=== PATIENT | female | born 1960 | race African-American/Black ===

== ENCOUNTER 2019-09-02 15:09 | Inpatient (IN) | payer MEDICAID ==
[~2019-09-02] VITALS: Ht 170.2 cm; Wt 81.6 kg
--- NOTE | 2019-09-02 15:09 | NUR ---
"B[facility], SENT BY PMD FOR RAPID [id number]" pt aaox4, -sob, nad noted, pending md siegel
[2019-09-02] MEDS ORDERED: IV NS 0.9% 1,000 ML BAG IV ONE (15:30)
[2019-09-02 15:47] LABS: EOSINOPHILS % (AUTO) 0.1 % (0.0-6.0); HEMATOCRIT 34 % (33-45); HEMOGLOBIN 11.1 g/dL (11.5-14.8)
[2019-09-02 15:51] LABS: BASOPHILS # (AUTO) 0.1 /CMM (0.0-0.2); BASOPHILS % (AUTO) 0.5 % (0.0-2.0); LYMPHOCYTES # (AUTO) 1.9 /CMM (0.8-4.8); LYMPHOCYTES % (AUTO) 10.6 % (20.0-44.0); MEAN CORPUSCULAR HGB CONC 33 g/dl (31.0-36.0); MEAN CORPUSCULAR VOLUME 92 fL (82-100); MONOCYTES # (AUTO) 2.4 /CMM (0.1-1.30); MONOCYTES % (AUTO) 13.4 % (2.0-12.0); NEUTROPHILS # (AUTO) 13.6 /CMM (1.8-8.9); NEUTROPHILS % (AUTO) 75.4 % (43.0-81.0); PLATELET COUNT (AUTO) 256 /CMM (150-450); RED BLOOD CELL COUNT(AUTO) 3.69 MIL/uL (4.0-5.2); WHITE BLOOD COUNT (AUTO) 18.1 K/uL (4.3-11.0)
[2019-09-02 15:55] LABS: CALCIUM, SERUM 8.5 mg/dL (8.5-10.1); CARBON DIOXIDE 26 mmol/L (21-32); CHLORIDE 103 mmol/L (98-107); CREATININE 1.4 mg/dL (0.6-1.3); GLUCOSE 111 mg/dL (74-106); POTASSIUM 4.2 mmol/L (3.5-5.1); SODIUM SERUM 139 mmol/L (136-145); UREA NITROGEN, BLOOD 30 mg/dL (7-18)
[2019-09-02 16:10] LABS: ALANINE AMINOTRANSFERASE 20 U/L (12-78); ALBUMIN 2.4 g/dL (3.4-5.0); ALKALINE PHOSPHATASE 93 U/L (46-116); ASPARTATE AMINOTRANSFERASE 14 U/L (15-37); BILIRUBIN,DIRECT 0.1 mg/dL (0.0-0.2); BILIRUBIN,TOTAL 0.2 mg/dL (0.2-1.0); TOTAL PROTEIN, SERUM 7.3 g/dL (6.4-8.2)
[2019-09-02 16:38] LABS: APPEARANCE,URINE Slightly Cloudy (CLEAR); BILIRUBIN,URINE Negative (NEGATIVE); BLOOD, URINE Negative Ery/uL (NEGATIVE); KETONES,URINE Trace (NEGATIVE); LEUKOCYTE ESTERASE ,URINE Small (NEGATIVE); NITRITE, URINE Negative (NEGATIVE); PROTEIN,URINE Trace mg/dl (NEGATIVE); UGLUCOSE Negative (NEGATIVE); UROBILINOGEN,URINE 0.2 EU/dL (0.2)
[2019-09-02 16:43] LABS: COLOR,URINE DARK YELLOW (YELLOW)
[2019-09-02 16:48] LABS: BACTERIA,URINE Few /HPF (None Seen); RBC,URINE 0-2 /HPF (0-2); SQUAMOUS EPITHELIAL CELL,UR Few /HPF (None Seen)
[2019-09-02] MEDS ORDERED: BENZ2AMP PO (16:50)
[2019-09-02] MEDS ORDERED: HALO2TAB PO (16:50)
[2019-09-02] MEDS ORDERED: CEFTRIAXONE 1GM BAG (ER ONLY) 50 ML IV ONE (17:30)
[2019-09-02] MEDS ORDERED: AZITHROMYCIN 500 MG in IV D5W 250 ML IV ONE (17:30)
[2019-09-02] MEDS ORDERED: Z GUARD REMEDY 2 OZ OINT TP PRN (19:00)
[2019-09-02] MEDS ORDERED: ONDANSETRON HCL/PF 4 MG/2 ML VIAL IVP PRN (19:00)
[2019-09-02] MEDS ORDERED: MAG HYDROX/AL HYDROX/SIMETH 30 ML UDC PO PRN (19:00)
[2019-09-02] MEDS ORDERED: HYDROCODONE/APAP 5/325MG 1 EACH TABLET PO PRN (19:00)
[2019-09-02] MEDS ORDERED: MAGNESIUM HYDROXIDE 30 ML UDC PO PRN (19:00)
[2019-09-02] MEDS ORDERED: ZOLPIDEM TARTRATE 5 MG TABLET PO PRN (19:00)
--- NOTE | 2019-09-02 21:42 | NUR ---
report given to chris mcdowell for sera, pt was transported to 1st floor [facility]
[2019-09-02] MEDS: IV NS 0.9% 1,000 ML IV PRN (22:08)
--- NOTE | 2019-09-02 22:30 | NUR ---
HOSPITAL RECEIVING CLERK NOTES RECEIVED PT FROM ER [facility] [place]. PT A/O X2 AND ABLE TO MAKE NEEDS KNOWN. RESPIRATIONS EVEN AND UNLABORED WITH NO S/S OF ACUTE DISTRESS OR SOB NOTED. NO COMPLAINTS OF PAIN AT THIS TIME. PT NOTED WITH RWRIST @20G PATENT AND INTACT AND SL. PT ON TELE MONITORING WITH SINUS TACH @120S. SAFETY MEASURES IN PLACE WITH BED IN LOWEST LOCKED POSITION WITH SIDE RAILS UP X2. ORIENTED PT TO ROOM AND STAFF. CALL LIGHT WITHIN REACH. WILL CONTINUE TO MONITOR.
[2019-09-02 22:35] VITALS: BP 130/68
--- NOTE | 2019-09-02 22:45 | NUR ---
LEAN SPECIALIST NOTES PT NOTED WITH ELEVATED TEMP, COOLING MEASURES INITIATED, WILL CONTINUE TO MONITOR.
--- NOTE | 2019-09-02 22:45 | NUR ---
MANAGER MINING NOTES PT NOTED AGITATED. PT REFUSES TO ANSWER QUESTIONS BUT STATES SHE WANTS TO GO HOME. PT STATES THAT THERE IS NOTHING WRONG WITH HER. EXPLAINED THE SITUATION WITH HER AND PT STATED THAT SHE CAN JUST TAKE THE MEDICATION AT HOME HERSELF. PT ALSO CURSING.
[2019-09-02 23:40] VITALS: BP 108/51
[2019-09-02] MEDS: ACETAMINOPHEN 325 MG TABLET PO PRN (23:42)
--- NOTE | 2019-09-02 23:52 | NUR ---
WOOL MERCHANT NOTES PT NOTED WITH ELEVATED TEMP, TYLENOL GIVEN. PT REFUSED COOLING MEASURES AT THIS TIME. WILL CONTINUE TO MONITOR.
[2019-09-03 03:55] VITALS: BP 93/47
[2019-09-03 06:27] LABS: BASOPHILS # (AUTO) 0.1 /CMM (0.0-0.2); BASOPHILS % (AUTO) 0.5 % (0.0-2.0); EOSINOPHILS % (AUTO) 0.5 % (0.0-6.0); HEMATOCRIT 33 % (33-45); HEMOGLOBIN 10.7 g/dL (11.5-14.8); LYMPHOCYTES # (AUTO) 1.9 /CMM (0.8-4.8); LYMPHOCYTES % (AUTO) 12.2 % (20.0-44.0); MEAN CORPUSCULAR HGB CONC 33 g/dl (31.0-36.0); MEAN CORPUSCULAR VOLUME 90 fL (82-100); MONOCYTES % (AUTO) 12.7 % (2.0-12.0); NEUTROPHILS # (AUTO) 11.8 /CMM (1.8-8.9); NEUTROPHILS % (AUTO) 74.1 % (43.0-81.0); PLATELET COUNT (AUTO) 240 /CMM (150-450); WHITE BLOOD COUNT (AUTO) 15.9 K/uL (4.3-11.0)
--- NOTE | 2019-09-03 07:00 | NUR ---
CIVIL DIVISION DEPUTY SHERIFF NOTES PT IN BED AWAKE AND ABLE TO MAKE NEEDS KNOWN. PT A/O X2 AND ABLE TO MAKE NEEDS KNOWN. RESPIRATIONS EVEN AND UNLABORED WITH NO S/S OF ACUTE DISTRESS OR SOB NOTED THROUGHOUT SHIFT. NO COMPLAINTS OF PAIN AT THIS TIME. PT NOTED WITH RWRIST @20G PATENT AND INTACT INFUSING NS @75CC/HR. PT ON TELE MONITORING WITH SINUS TACH @115S. SAFETY MEASURES IN PLACE WITH BED IN LOWEST LOCKED POSITION WITH SIDE RAILS UP X2. WILL ENDORSE TO ONCOMING NURSE FOR MARILYNN.
--- NOTE | 2019-09-03 07:10 | NUR ---
RN OPENING NOTES RECEIVED REPORT FROM WHOLESALE ACCOUNT MANAGER RN. PT IS AWAKE AND STATING SHE WANTS TO GO HOME. PT STATES SHE IS NOT HAVING ANY PAIN AND WOULD LIKE FOR US TO GET OUT OF THE ROOM. PT APPEARS TO BE UNCOOPERATIVE AT THIS TIME. PT HAS A RIGHT WRIST 20 GAUGE SL. PT IS A&OX2. PT IS ST ON HR MONITOR HR 104. BED IS LOCKED AND IN LOWEST POSITIION WITH CALL LIGHT IN REACH. WILL CONTINUE TO MONITOR.
[2019-09-03 07:14] LABS: ALBUMIN 2.1 g/dL (3.4-5.0); BILIRUBIN,TOTAL 0.4 mg/dL (0.2-1.0); CALCIUM, SERUM 7.7 mg/dL (8.5-10.1); CREATININE 1.1 mg/dL (0.6-1.3); POTASSIUM 3.9 mmol/L (3.5-5.1); TOTAL PROTEIN, SERUM 6.6 g/dL (6.4-8.2)
[2019-09-03 07:29] LABS: THYROID STIMULATING HORMONE 1.301 uIU/mL (0.358-3.74)
[2019-09-03 07:52] LABS: BAND % (MANUAL) 1 % (0.0-5.0); LYMPHOCYTES % (MANUAL) 19 % (16-48); MONOCYTES % (MANUAL) 14 % (0-11.0); NEUTROPHILS % (MANUAL) 66 (42-76)
[2019-09-03] MEDS: PANTOPRAZOLE 40 MG TABLET.DR PO SCH (07:55)
[2019-09-03] MEDS: ACETAMINOPHEN 325 MG TABLET PO PRN ×2 (07:55→15:06)
[2019-09-03 08:00] VITALS: BP 96/48
[2019-09-03 09:06] LABS: MAGNESIUM 1.9 mg/dL (1.8-2.4)
[2019-09-03] MEDS: LACTOBACILLUS RHAMNOSUS GG 1 EACH CAP.SPRINK PO SCH ×2 (09:11→16:23)
--- NOTE | 2019-09-03 11:13 | NUR ---
PT NOT ALLOWING FOR NEW IV INSERTION. IV IN RIGHT WRIST DISLODGED PT REFUSING STAFF TO REMOVE IV. PT IS NONCOMPLIANT AT PRESENT MOMENT WILL ATTEMPT TO REMOVE AT A LATER TIME WHEN PT IS MORE AGREEABLE.
[2019-09-03] MEDS: LEVOFLOXACIN (750 MG) 750 MG TABLET PO SCH (13:18)
--- NOTE | 2019-09-03 15:05 | NUR ---
HAMILTON was informed by shelter case manager Zenia that pt. came from [facility]. HAMILTON contacted Kurtis at [facility] to inquire if pt. is from [facility]. Per Kurtis, pt. is from there and they will have a bed for the pt. once the pt. is medically cleared. HAMILTON updated Zenia with aforementioned information.
[2019-09-03 16:00] VITALS: BP 88/49
--- NOTE | 2019-09-03 16:09 | NUR ---
PT AGREEABLE TO REMOVAL OF IV. PT INSISTS THAT SHE WILL NOT ALLOW ANOTHER IV FOR INSERTION. Addendum: 09/03/19 at 1610 by MARGARITO DEJESUS RN PT RUNNING FEVER. REFUSES COOLING MEASURES.
--- NOTE | 2019-09-03 16:18 | NUR ---
PT REFUSING NASAL CANNULA.
[2019-09-03] MEDS: DIVALPROEX SODIUM 125 MG CAP.SPRINK PO SCH (16:24)
[2019-09-03] MEDS: BENZTROPINE MESYLATE (1 MG) 1 MG TABLET PO SCH (16:24)
[2019-09-03] MEDS: HALOPERIDOL 1 MG TABLET PO SCH (16:42)
[2019-09-03] MEDS ORDERED: CEFTRIAXONE 1 G in IV D5W 50 ML IV SCH (17:00)
[2019-09-03] MEDS ORDERED: AZITHROMYCIN 500 MG in IV D5W 250 ML IV SCH (18:00)
--- NOTE | 2019-09-03 18:29 | NUR ---
PT REFUSING TO EAT DINNER STATES SHE DOES NOT LIKE HER DINNER. PT REQUESTING JOSE R HAYS.
--- NOTE | 2019-09-03 19:17 | NUR ---
REPORT GIVEN TO AUTOMOTIVE SERVICE PROFESSIONAL RN FOR MARILYNN.
--- NOTE | 2019-09-03 19:30 | NUR ---
RN MS OPENING NOTES RECEIVED PATIENT IN BED AWAKE, ALERT AND ORIENTED 2, VERBALLY RESPONSIVE. ABLE TO MAKE NEEDS KNOWN. PATIENT DISHEVELED AND UNKEMPT. REFUSES ANY HELP. REFUSES HOSPITAL GOWN. BREATHING EVEN AND UNLABORED. NO SOB NOTED. ON ROOM AIR. NO COMPLAINTS OF PAIN OR DISCOMFORT. NO IV ACCESS DUE TO REFUSAL. STEADY GAIT TO THE BATHROOM. ALL OTHER NEEDS ATTENDED TO. SAFETY MEASURES IN PLACE. CALL LIGHT WITHIN REACH. WILL CONTINUE TO MONITOR.
[2019-09-03 20:00] VITALS: BP 108/51
[2019-09-04 04:00] VITALS: BP 111/54
--- NOTE | 2019-09-04 04:22 | NUR ---
RN MS NOTES PATIENT REFUSED TO PUT GOWN ON. ALSO REFUSED FOR BED SHEETS TO BE CHANGED.
--- NOTE | 2019-09-04 05:28 | NUR ---
RN MS NOTES PATIENT REFUSED BLOOD DRAW AND WANTS IT "LATER ON." PHLEB WILL COME BACK.
--- NOTE | 2019-09-04 06:25 | NUR ---
RN MS CLOSING NOTES PATIENT RESTING IN BED. IN NO DISTRESS. NO ACUTE CHANGES THROUGHOUT SHIFT. BREATHING EVEN AND UNLABORED. NO SOB NOTED. ON ROOM AIR. NO COMPLAINTS OF PAIN OR DISCOMFORT. NO IV ACCESS DUE TO REFUSAL. STEADY GAIT TO THE BATHROOM. ALL OTHER NEEDS ATTENDED TO. SAFETY MEASURES IN PLACE. CALL LIGHT WITHIN REACH. WILL ENDORSE TO ONCOMING NURSE FOR MARILYNN.
[2019-09-04 08:00] VITALS: BP 93/51
[2019-09-04] MEDS: DIVALPROEX SODIUM 125 MG CAP.SPRINK PO SCH ×3 (08:09→16:09)
[2019-09-04] MEDS: BENZTROPINE MESYLATE (1 MG) 1 MG TABLET PO SCH ×3 (08:09→16:09)
[2019-09-04] MEDS: HALOPERIDOL 1 MG TABLET PO SCH ×3 (08:09→16:09)
[2019-09-04] MEDS: PANTOPRAZOLE 40 MG TABLET.DR PO SCH (08:09)
[2019-09-04] MEDS: LACTOBACILLUS RHAMNOSUS GG 1 EACH CAP.SPRINK PO SCH ×2 (08:09→16:09)
[2019-09-04 09:00] VITALS: BP 93/51
[2019-09-04 09:12] LABS: HIV SCRN 4G wRFX Non Reactive (Non Reactive)
[2019-09-04] MEDS: LEVOFLOXACIN (750 MG) 750 MG TABLET PO SCH (12:37)
[2019-09-04 13:40] LABS: BASOPHILS % (AUTO) 0.4 % (0.0-2.0); EOSINOPHILS % (AUTO) 0.3 % (0.0-6.0); HEMATOCRIT 33 % (33-45); HEMOGLOBIN 10.8 g/dL (11.5-14.8); LYMPHOCYTES # (AUTO) 1.7 /CMM (0.8-4.8); LYMPHOCYTES % (AUTO) 14.3 % (20.0-44.0); MEAN CORPUSCULAR HGB CONC 33 g/dl (31.0-36.0); MEAN CORPUSCULAR VOLUME 89 fL (82-100); MONOCYTES # (AUTO) 1.9 /CMM (0.1-1.30); MONOCYTES % (AUTO) 15.9 % (2.0-12.0); NEUTROPHILS # (AUTO) 8.1 /CMM (1.8-8.9); NEUTROPHILS % (AUTO) 69.1 % (43.0-81.0); PLATELET COUNT (AUTO) 278 /CMM (150-450); RED BLOOD CELL COUNT(AUTO) 3.64 MIL/uL (4.0-5.2); WHITE BLOOD COUNT (AUTO) 11.7 K/uL (4.3-11.0)
[2019-09-04 13:46] LABS: CALCIUM, SERUM 8.3 mg/dL (8.5-10.1); CREATININE 1.1 mg/dL (0.6-1.3); POTASSIUM 4.2 mmol/L (3.5-5.1)
[2019-09-04 16:00] VITALS: BP 93/51
[2019-09-04 17:48] VITALS: BP 92/50
--- NOTE | 2019-09-04 19:00 | NUR ---
MS RN OPENING NOTES Received patient A/O x2, awake on L sidelying position on bed. On RA, watching TV, no respiratory distress, denies discomfort at this time. Discuss to patient the POC for the night, patient verbalized understanding. Reemphasized the importance to stop smoking, patient verbalized understanding. Kept on bed clean, dry and comfortable. On fall and aspiration precautions. Call lights within easy reach. Will continue to monitor accordingly.
[2019-09-04 20:00] VITALS: BP 98/48
[2019-09-05 04:00] VITALS: BP 142/57
--- NOTE | 2019-09-05 06:09 | NUR ---
MS RN CLOSING NOTES Patient asleep, easily awaken. On RA, no respiratory distress, no s/sx of discomfort noted at this time. All nursing needs attended, no new complaints made. Afebrile throughout the shift, HR WNL. Kept on bed clean, dry and comfortable. On fall and aspiration precautions. Call light within easy reach. Endorsed to the next shift.
[2019-09-05 08:00] VITALS: BP 109/46
[2019-09-05 08:06] LABS: HIV SCRN 4G wRFX Non Reactive (Non Reactive)
[2019-09-05] MEDS: PANTOPRAZOLE 40 MG TABLET.DR PO SCH (08:27)
[2019-09-05] MEDS: BENZTROPINE MESYLATE (1 MG) 1 MG TABLET PO SCH ×3 (08:27→16:50)
[2019-09-05] MEDS: LACTOBACILLUS RHAMNOSUS GG 1 EACH CAP.SPRINK PO SCH ×2 (08:27→16:50)
[2019-09-05] MEDS: DIVALPROEX SODIUM 125 MG CAP.SPRINK PO SCH ×3 (08:27→16:50)
[2019-09-05] MEDS: HALOPERIDOL 1 MG TABLET PO SCH ×3 (08:28→16:50)
[2019-09-05] MEDS: IV NS 0.9% 1,000 ML IV PRN (11:12)
[2019-09-05] MEDS ORDERED: LEVO750T21 PO (11:36)
[2019-09-05] MEDS: LEVOFLOXACIN (750 MG) 750 MG TABLET PO SCH (12:23)
--- NOTE | 2019-09-05 18:15 | NUR ---
RN NOTE: (DISCHARGE NOTE) PATIENT REMAINS ALERT AWAKE ORIENTED X 2 WITH PERIODS OF FORGETFULNESS, CONFUSION. ON ROOM AIR, NO BREATHING DISTRESS NOTED. DENIES CHEST PAIN & DISCOMFORT. NO FALL/INJURY NOTED. PATIENT REFUSING IV LINE & FLUIDS, MD AWARE. NO SIGNIFICANT CHANGES NOTED DURING SHIFT. AT 1811: PATIENT DISCHARGE TO [facility]. PATIENT AGREE WITH PLAN. SKIN INTACT, NO REDNESS NOTED. PATIENT AMBULATORY. DISCHARGE PACKAGE GIVEN TO AMBULANCE EMT. LEFT VIA AMBULANCE WITH ALL BELONGINGS. PHAN BECKFORD MADE AWARE THAT DAUGHTER LUDIN NUMBERS ARE NOT WORKING & [phone].
== END 2019-09-05 18:10 | DRG 720 ==
LOC: ER 15:19 → TELE1 20:05 → MEDSG1 09-03 10:35
PROVIDERS: ADMIT Hospitalist; ATTEND Nurse Practitioner Acute Care
DX: A41.9 Sepsis, unspecified organism (principal); N17.0 Acute kidney failure with tubular necrosis; G93.41 Metabolic encephalopathy; E44.0 Moderate protein-calorie malnutrition; E87.2 Acidosis; J15.9 Unspecified bacterial pneumonia; N39.0 Urinary tract infection, site not specified; E88.09 Other disorders of plasma-protein metabolism, not elsewhere classified; F17.210 Nicotine dependence, cigarettes, uncomplicated; E66.3 Overweight; F25.9 Schizoaffective disorder, unspecified; F31.9 Bipolar disorder, unspecified; F29 Unspecified psychosis not due to a substance or known physiological condition; Z68.28 Body mass index [BMI] 28.0-28.9, adult
CPT/HCPCS: 36415; 71045-TC; 80048-TC; 80053-TC; 80061-TC; 80076-TC; 81000-TC; 83605-TC; 83735-TC; 84100-TC; 84443-TC; 84484-TC; 85025-TC; 85730-TC; 87040-TC; 87070-TC; 87081-TC; 87086-TC; 94640-TC; G0378; J0456; J0696; J7030; J7060

== ENCOUNTER 2022-07-27 12:44 | Inpatient (IN) | payer MEDICAID, OTHER ==
[~2022-07-27] VITALS: Ht 170.2 cm; Wt 90.3 kg
[~2022-07-27 12:44] MED LIST: BENZ2AMP PO; HALO2TAB PO; LEVO750T21 PO
[2022-07-27] MEDS ORDERED: HALOPERIDOL LACTATE INJ 5 MG/ML VIAL ONE (13:14)
[2022-07-27] MEDS ORDERED: HALOPERIDOL LACTATE INJ 5 MG/ML VIAL IM ONE (13:30)
[2022-07-27 14:25] LABS: BASOPHILS % (AUTO) 0.3 % (0.0-2.0); EOSINOPHILS % (AUTO) 1.8 % (0.0-6.0); HEMATOCRIT 30 % (33-45); HEMOGLOBIN 9.6 g/dL (11.5-14.8); LYMPHOCYTES # (AUTO) 1.5 K/uL (0.8-4.8); LYMPHOCYTES % (AUTO) 61.4 % (20.0-44.0); MEAN CORPUSCULAR HGB CONC 32 g/dl (31.0-36.0); MEAN CORPUSCULAR VOLUME 97 fL (82-100); MONOCYTES # (AUTO) 0.4 K/uL (0.1-1.30); MONOCYTES % (AUTO) 14.8 % (2.0-12.0); NEUTROPHILS # (AUTO) 0.5 K/uL (1.8-8.9); NEUTROPHILS % (AUTO) 21.7 % (43.0-81.0); PLATELET COUNT (AUTO) 146 K/uL (150-450); RED BLOOD CELL COUNT(AUTO) 3.06 MIL/uL (4.0-5.2); WHITE BLOOD COUNT (AUTO) 2.5 K/uL (4.3-11.0)
[2022-07-27 14:34] LABS: CALCIUM, SERUM 8.4 mg/dL (8.5-10.1); CREATININE 2.6 mg/dL (0.6-1.3); POTASSIUM 4.4 mmol/L (3.5-5.1)
[2022-07-27 14:41] LABS: ALBUMIN 1.6 g/dL (3.4-5.0); BILIRUBIN,DIRECT 0.7 mg/dL (0.0-0.2); BILIRUBIN,TOTAL 0.9 mg/dL (0.2-1.0); TOTAL PROTEIN, SERUM 6.1 g/dL (6.4-8.2)
[2022-07-27] MEDS ORDERED: AMLO-212 PO (14:58)
[2022-07-27] MEDS ORDERED: QUET25TA PO (14:58)
[2022-07-27] MEDS ORDERED: DIVA125C2 PO (14:58)
[2022-07-27] MEDS ORDERED: APIX5TAB PO (14:58)
[2022-07-27] MEDS ORDERED: PANT40TA49 PO (14:58)
[2022-07-27] MEDS ORDERED: METO-358 PO (14:58)
--- NOTE | 2022-07-27 15:26 | NUR ---
COVID 19 ANTIGEN SPECIMEN COLLECTED AND SENT TO LAB
[2022-07-27] MEDS ORDERED: IV NS 0.9% 1,000 ML BAG IV ONE (15:30)
[2022-07-27 15:46] LABS: EOSINOPHILS % (MANUAL) 2 % (0-4); LYMPHOCYTES % (MANUAL) 68 % (16-48); MONOCYTES % (MANUAL) 14 % (0-11.0); NEUTROPHILS % (MANUAL) 16 (42-76)
[2022-07-27 15:51] LABS: BILIRUBIN,URINE SMALL (NEGATIVE); COLOR,URINE YELLOW (YELLOW); LEUKOCYTE ESTERASE ,URINE SMALL (NEGATIVE); NITRITE, URINE POSITIVE (NEGATIVE); PROTEIN,URINE 30 mg/dl (NEGATIVE); UGLUCOSE NEGATIVE (NEGATIVE); UROBILINOGEN,URINE >=8.0 EU/dL (0.2)
[2022-07-27 16:03] LABS: BACTERIA,URINE 4+ /HPF (None Seen); SQUAMOUS EPITHELIAL CELL,UR Few /HPF (None Seen); WBC,URINE TOO NUMEROUS TO COUN /HPF (0-3)
--- NOTE | 2022-07-27 19:30 | NUR ---
RECEIVED THIS 62/F CAME EARLIER WITH CC OF FAILURE TO THRIVE. PATIENT IS AAOX4. SHOUTING THAT SHE WAS NOT BEING FED THE WHOLE TIME THAT SHE STAYED IN ER. PATIENT HAS PERIPHERAL LINE ON LEFT WRIST USING G20 . ATTACHED TO MONITOR. VITALS CHECKED.
--- NOTE | 2022-07-27 19:35 | NUR ---
DR OZUNA AGREED TO GIVE PATIENT SOME SNACKS.
--- NOTE | 2022-07-27 19:50 | NUR ---
FAXED CLINICALS TO [facility] AT [phone]
--- NOTE | 2022-07-27 20:03 | NUR ---
REPORT GIVEN TO WICHO INTERIANO
--- NOTE | 2022-07-27 20:16 | NUR ---
CALLED ADMITTING. PATIENT DOESNT HAVE AUTHORIZATION YET TO BE ADMITTED.
--- NOTE | 2022-07-27 20:40 | NUR ---
AUTH NUMBER TO ADMIT PT HERE PER RACHEL MURO: [id number]
[2022-07-27] MEDS ORDERED: Z GUARD REMEDY 4 OZ OINT TP PRN (21:30)
[2022-07-27] MEDS ORDERED: ACETAMINOPHEN 325 MG TABLET PO PRN (21:30)
[2022-07-27] MEDS ORDERED: MORPHINE SULFATE INJ 2 MG/ML DISP.SYRIN IV PRN (21:30)
[2022-07-27] MEDS ORDERED: ZOLPIDEM TARTRATE 5 MG TABLET PO PRN (21:30)
[2022-07-27] MEDS ORDERED: MAGNESIUM HYDROXIDE 30 ML UDC PO PRN (21:30)
[2022-07-27] MEDS ORDERED: MAG HYDROX/AL HYDROX/SIMETH 30 ML UDC PO PRN (21:30)
[2022-07-27] MEDS ORDERED: ONDANSETRON HCL/PF 4 MG/2 ML VIAL IVP PRN (21:30)
--- NOTE | 2022-07-27 21:37 | NUR ---
Combative patient, refused the exam. Per RN Natally, the patient may accept better in the morning
--- NOTE | 2022-07-27 21:41 | NUR ---
MS TANKER SERVICEMAN NOTE RECEIVED PATIENT FROM ER, PATIENT ALERT/ORIENTED X 2-3, PT AGITATED AND YELLING. PATIENT REFUSING ALL CARE AND CUSSING AT ALL STAFF, REFUSED TO HAVE US OF ABDOMEN, REFUSED VITALS, REFUSED SKIN CHECK, REFUSED HYGIENE CARE, REFUSED TO ANSWER ANY QUESTIONS. PATIENT STATES SHE WANTS TO BE LEFT ALONE. IV ACCESS ON LEFT WRIST #20G INTACT, UNABLE TO FLUSH BECAUSE PATIENT REFUSED. SAFETY MEASURES IN PLACE: CALL LIGHT WITHIN REACH, SIDE RAILS UP X 3, BED LOCKED IN LOWEST POSITION, BED ALARM ON. WILL CONTINUE TO MONITOR PATIENT Addendum: 07/27/22 at 7684 by LAISHA CHOW RN ALERT/ORIENTED X 1-2
[2022-07-27] MEDS: IV NS 0.9% 1,000 ML IV PRN (22:10)
[2022-07-27] MEDS ORDERED: CEFTRIAXONE 1 G VIAL ONE (22:26)
[2022-07-27] MEDS: CEFTRIAXONE 1 G in IV D5W 50 ML IV SCH (22:27)
--- NOTE | 2022-07-27 22:32 | NUR ---
MS RN NOTE PATIENT REFUSED NURSE SWALLOW EVAL, STATED "WHY DO YOU KEEP BOTHERING ME?! DON'T YOU GET IT TO LEAVE ME ALONE!"
--- NOTE | 2022-07-28 06:41 | NUR ---
MS RN CLOSING NOTE PATIENT SLEEPING IN BED, ALERT/ORIENTED X 1-2, PATIENT LESS AGITATED BUT STILL YELLS AT STAFF TO LEAVE HER ALONE. PATIENT STABLE ON RA, NO S/S OF DISTRESS OR SOB NOTED, BREATHING EVEN AND UNLABORED. PATIENT REFUSED MOST CARE THIS SHIFT, YELLED AND CUSSED AT STAFF WHENEVER ROOM WAS ENTERED AND REFUSED TO ANSWER ALL ADMISSION QUESTIONS. PATIENT REFUSED US OF ABDOMEN, LAB DRAW AND NURSING SWALLOW EVAL, PATIENT TO BE NPO UNTIL SWALLOW EVAL COMPLETED PER MD. PATIENT ALLOWED US TO PROVIDE HYGIENE CARE THIS AM, NO WOUNDS NOTED ON BODY. IV ACCESS ON LEFT WRIST #20G INTACT AND INFUSING NS @ 90 ML/HR. SAFETY MEASURES IN PLACE: CALL LIGHT WITHIN REACH, SIDE RAILS UP X 2, BED LOCKED IN LOWEST POSITION, BED ALARM ON. WILL ENDORSE TO DAY SHIFT NURSE FOR CONTINUITY OF CARE
--- NOTE | 2022-07-28 07:20 | NUR ---
MS RN OPENING NOTE RECEIVED PATIENT SLEEPING IN BED, ALERT/ORIENTED X 1/2, PATIENT STABLE ON ROOM AIR, WITH NO S/S OF DISTRESS OR SOB, BREATHING EVEN AND UNLABORED. NO WOUNDS NOTED ON BODY. IV ACCESS ON LEFT WRIST 20G INTACT AND INFUSING NS @ 90 ML/HR. PATIENT TO BE NPO UNTIL SWALLOW EVAL COMPLETED PER MD. SAFETY MEASURES IN PLACE: CALL LIGHT WITHIN REACH, SIDE RAILS UP X2, BED LOCKED IN LOWEST POSITION, BED ALARM ON. WILL CONTINUE TO MONITOR
[2022-07-28] MEDS ORDERED: PANTOPRAZOLE 40 MG TABLET.DR PO SCH (07:30)
--- NOTE | 2022-07-28 08:01 | NUR ---
PT REFUSED ABD US AND VITAL SIGNS FOR 8AM, WILL TRY AGAIN LATER
[2022-07-28] MEDS: DIVALPROEX SODIUM 125 MG CAP.SPRINK PO SCH ×2 (09:00→21:45)
[2022-07-28] MEDS: PANTOPRAZOLE 40 MG VIAL IV SCH ×2 (09:00→11:23)
[2022-07-28] MEDS: AMLODIPINE BESYLATE 5 MG TABLET PO SCH (09:00)
[2022-07-28] MEDS: QUETIAPINE FUMARATE 25 MG TABLET PO SCH ×2 (09:00→17:38)
[2022-07-28] MEDS ORDERED: APIXABAN 5 MG TABLET PO SCH (09:00)
[2022-07-28] MEDS: METOPROLOL SUCCINATE 50 MG TAB.SR.24H PO SCH (09:00)
[2022-07-28] MEDS: APIXABAN 5 MG TABLET PO SCH ×2 (10:00→17:37)
[2022-07-28] MEDS: IV NS 0.9% 1,000 ML IV PRN (11:23)
--- NOTE | 2022-07-28 11:50 | NUR ---
PT REFUSED SWALLOW EVAL FROM THIS MORNING, DID NURSING EVAL WITH APPLE SAUCE AND ORANGE JUICE, PT TOLERATED WELL, NO CHOKING, NO ASPIRATION. NOTIFIED DR. RAJESH THACKER REGARDING THIS, CHANGED DIET FROM NPO TO PUREED.
[2022-07-28 12:00] VITALS: BP 112/61
[2022-07-28] MEDS ORDERED: OLANZAPINE 10 MG VIAL IM ONE (14:00)
[2022-07-28] MEDS: IV D5/ 0.9% NACL 1,000 ML IV PRN (14:51)
[2022-07-28 16:22] LABS: BILIRUBIN,TOTAL 0.6 mg/dL (0.2-1.0); CREATININE 2.1 mg/dL (0.6-1.3); PHOSPHORUS 3.3 mg/dL (2.5-4.9); TOTAL PROTEIN, SERUM 5.4 g/dL (6.4-8.2)
[2022-07-28 16:26] LABS: ALBUMIN 1.2 g/dL (3.4-5.0)
[2022-07-28 17:04] LABS: THYROID STIMULATING HORMONE 4.998 uIU/mL (0.358-3.74)
[2022-07-28 17:10] LABS: C-REACTIVE PROTEIN 4.3 mg/dL (0.0-0.9)
--- NOTE | 2022-07-28 17:10 | NUR ---
LAB CALLED REGARDING CRITICAL LAB FOR ALBUMIN OF 1.2. NOTIFIED DR THACKER, MADE AWARE AND STATED HE WILL PUT IN AN ORDER.
[2022-07-28 17:21] LABS: BASOPHILS % (AUTO) 0.6 % (0.0-2.0); EOSINOPHILS % (AUTO) 2.8 % (0.0-6.0); HEMATOCRIT 27 % (33-45); HEMOGLOBIN 8.7 g/dL (11.5-14.8); LYMPHOCYTES # (AUTO) 1.5 K/uL (0.8-4.8); MEAN CORPUSCULAR HGB CONC 32 g/dl (31.0-36.0); MEAN CORPUSCULAR VOLUME 100 fL (82-100); MONOCYTES # (AUTO) 0.4 K/uL (0.1-1.30); NEUTROPHILS # (AUTO) 0.7 K/uL (1.8-8.9); NEUTROPHILS % (AUTO) 26.6 % (43.0-81.0); PLATELET COUNT (AUTO) 149 K/uL (150-450); RED BLOOD CELL COUNT(AUTO) 2.73 MIL/uL (4.0-5.2); WHITE BLOOD COUNT (AUTO) 2.8 K/uL (4.3-11.0)
[2022-07-28 17:22] LABS: BAND % (MANUAL) 4 % (0.0-5.0); EOSINOPHILS % (MANUAL) 3 % (0-4); LYMPHOCYTES % (MANUAL) 47 % (16-48); MONOCYTES % (MANUAL) 10 % (0-11.0); NEUTROPHILS % (MANUAL) 36 (42-76)
[2022-07-28 17:23] LABS: BILIRUBIN,DIRECT 0.1 mg/dL (0.0-0.2); BILIRUBIN,TOTAL 0.6 mg/dL (0.2-1.0)
[2022-07-28 17:24] LABS: ALBUMIN 1.2 g/dL (3.4-5.0)
[2022-07-28 17:25] LABS: TOTAL PROTEIN, SERUM 5.4 g/dL (6.4-8.2)
--- NOTE | 2022-07-28 18:47 | NUR ---
MS RN CLOSING NOTE PATIENT AWAKE IN BED, ALERT/ORIENTED X 1-2, PATIENT LESS AGITATED BUT STILL YELLS AT STAFF TO LEAVE HER ALONE. PATIENT STABLE ON RA, NO S/S OF DISTRESS OR SOB NOTED, BREATHING EVEN AND UNLABORED. PATIENT REFUSED BLOOD DRAW AND SWALLOW EVAL BY ST BUT DID NURSING SWALLOW EVAL AND TOLERATED APPLE SAUCE AND ORANGE JUICE WELL. ABLE TO SWALLOW TABLETS WITHNO SIGNS OF CHOKING. PATIENT REFUSED US OF ABDOMEN. NO WOUNDS NOTED ON BODY. IV ACCESS ON LEFT WRIST 20G INTACT AND INFUSING D5 NS @ 100ML/HR. SAFETY MEASURES IN PLACE: CALL LIGHT WITHIN REACH, SIDE RAILS UP X 2, BED LOCKED IN LOWEST POSITION, BED ALARM ON. WILL ENDORSE TO BERRY PLANTER NURSE FOR CONTINUITY OF CARE
--- NOTE | 2022-07-28 19:30 | NUR ---
MS RN OPENING NOTES RECEIVED PATIENT LYING IN BED WITH EYES CLOSED. EASY TO AROUSE. A/O X1-2, STARTED YELLING FOR ME TO GET OUT WHEN I ENTERED THE ROOM. BREATHING EVEN AND NON-LABORED ON ROOM AIR. NOT IN APPARENT DISTRESS. NO C/O PAIN OR DISCOMFORT AT THIS TIME. HAS LEFT WRIST IV ACCESS #20G WITH D5 NS RUNNING AT 100 ML/HR. NO S/S OF INFILTRATION NOTED. SAFETY MEASURES IN PLACE: BED LOCKED AND IN LOWEST POSITION, SIDE RAILS UP X2, CALL LIGHT WITHIN REACH. WILL CONTINUE POC.
[2022-07-28] MEDS: CEFTRIAXONE 1 G in IV D5W 50 ML IV SCH (21:45)
[2022-07-29] MEDS: IV D5/ 0.9% NACL 1,000 ML IV PRN (03:52)
--- NOTE | 2022-07-29 04:30 | NUR ---
MS RN NOTES IV ACCIDENTALLY PULLED OUT. OFFERED TO RE-INSERT BUT PATIENT REFUSED. EXPLAINED IMPORTANCE, STILL REFUSED. CN AWARE.
--- NOTE | 2022-07-29 05:08 | NUR ---
MS RN NOTES RE-ORDERED THE LABS THAT PATIENT REFUSED YESTERDAY.
--- NOTE | 2022-07-29 06:48 | NUR ---
CRATE BUILDER INFORMED ME THAT PATIENT REFUSED BLOOD DRAW. THEY WILL COME BACK LATER.
--- NOTE | 2022-07-29 06:52 | NUR ---
MS RN CLOSING NOTES PATIENT LYING IN BED ASLEEP, RESPONSIVE TO VERBAL AND TACTILE STIMULI. A/O X2, AGITATED AND UNCOOPERATIVE. NO SOB OR NOTED, TOLERATING ROOM AIR WELL. NO ACUTE DISTRESS NOTED. NO S/S OF PAIN OR DISCOMFORT. AFEBRILE. REFUSED IV RE-INSERTION. ALL DUE MEDS GIVEN AND NEEDS ATTENDED. REFUSED SKIN AND PERINEAL CARE, OFFERED AND EXPLAINED IMPORTANCE X3. SAFETY MEASURES MAINTAINED. WILL ENDORSE TO NEXT SHIFT FOR MARILYNN.
--- NOTE | 2022-07-29 07:21 | NUR ---
MS RN OPENING NOTES RECEIVED PATIENT LYING IN BED WITH EYES CLOSED. EASY TO AROUSE. A/O X1-2, BREATHING EVEN AND NON-LABORED ON ROOM AIR. NOT IN APPARENT DISTRESS. NO C/O PAIN OR DISCOMFORT AT THIS TIME. PT DOES NOT HAVE IV ACCESS, ASKED PT IF I CAN REINSERT, PT REFUSED AT THIS TIME. NO S/S OF INFILTRATION NOTED. SAFETY MEASURES IN PLACE: BED LOCKED AND IN LOWEST POSITION, SIDE RAILS UP X2, CALL LIGHT WITHIN REACH. WILL CONTINUE POC.
[2022-07-29 08:00] VITALS: BP 137/82
[2022-07-29] MEDS: PANTOPRAZOLE 40 MG VIAL IV SCH (09:00)
[2022-07-29] MEDS: DIVALPROEX SODIUM 125 MG CAP.SPRINK PO SCH ×2 (09:05→20:25)
[2022-07-29] MEDS: AMLODIPINE BESYLATE 5 MG TABLET PO SCH (09:06)
[2022-07-29] MEDS: APIXABAN 5 MG TABLET PO SCH ×2 (09:06→17:20)
[2022-07-29] MEDS: QUETIAPINE FUMARATE 25 MG TABLET PO SCH ×2 (09:07→17:20)
[2022-07-29] MEDS: METOPROLOL SUCCINATE 50 MG TAB.SR.24H PO SCH (09:07)
--- NOTE | 2022-07-29 09:13 | NUR ---
RN NOTE PT TOOK MEDICATIONS WITH APPLESAUCE, CRUSHED. PT STILL REFUSES IV INSERTION. WILL TRY AGAIN LATER
--- NOTE | 2022-07-29 09:15 | NUR ---
RN NOTE CANNOT ADMINISTER PROTONIX IV DUE TO PT REFUSING IV INSERTION.
--- NOTE | 2022-07-29 10:30 | NUR ---
PT COMPLAINED OF HEADACHE, GAVE TYLENOL PRN FOR PAIN. PT STILL REFUSES BLOOD DRAW.
--- NOTE | 2022-07-29 11:11 | NUR ---
RN NOTES INFORMED DR THACKER THAT PT IS REFUSING BLOOD DRAW AND IV INSERTION. DR THACKER WITH ORDER TO F/U WITH PSYCH MD AND WAS DONE. DR GUTIERREZ WILL COME TOMORROW TO DO PSYCH CONSULT.
--- NOTE | 2022-07-29 13:09 | NUR ---
RN NOTES MECHANICAL MAINTENANCE FOREMAN CAME TO DO U/S KIDNEYS BUT PATIENT REFUSED DESPITE EXPLAINING IMPORTANCE OF IT.
--- NOTE | 2022-07-29 16:48 | NUR ---
RN NOTES PATIENT REFUSED V/S TO BE TAKEN THIS AFTERNOON.
--- NOTE | 2022-07-29 18:33 | NUR ---
RN NOTES DR DUARTE ON UNIT AND INFORMED HER THAT PATIENT HAS BEEN BLOOD WORKS TODAY.
--- NOTE | 2022-07-29 18:44 | NUR ---
MS RN CLOSING NOTES PATIENT IN BED ASLEEP AT THIS TIME. EASILY AROUSABLE. HOB ELEVATED. A/O X2-3. ABLE TO VERBALIZED NEEDS. NON-COMPLIANT WITH CARE MOST OF TIME, CURSING ON AND OFF, REFUSED BLOOD DRAW AND IV INSERTION DURING SHIFT. ON ROOM AIR, TOLERATING WELL, BREATHING EVEN AND UNLABORED. NEEDS ATTENDED WELL. SAFETY MEASURES MAINTAINED: CALL LIGHT WITHIN REACH, BED ALARM ON, SIDE RAILS UP X3, BED LOCKED IN LOWEST POSITION. WILL ENDORSE MARILYNN TO DRUM STENCILER NURSE.
[2022-07-29 20:00] VITALS: BP 126/93
--- NOTE | 2022-07-29 20:11 | NUR ---
MS RN CLOSING NOTES PATIENT IN BED RESTING. EASILY AROUSABLE. A/O X2-3. ABLE TO VERBALIZED NEEDS. NON-COMPLIANT WITH CARE MOST OF TIME, REFUSED IV INSERTION AT THIS TIME. ON ROOM AIR, TOLERATING WELL, SAFETY MEASURES MAINTAINED: CALL LIGHT WITHIN REACH, BED ALARM ON, WILL CONTUITY WITH CARE.
[2022-07-29] MEDS: CEFTRIAXONE 1 G in IV D5W 50 ML IV SCH (22:00)
--- NOTE | 2022-07-29 22:05 | NUR ---
RN NOTES; PT. REFUSED IV INSERTION AND REFUSED ROCEPHIN 1 G IN IV , ENCOURGED X3 RISKS AND BENEFITS EXPLINED BUT STRONGLY REFUSED , PT. BEHAVIOR UNCOOPERTIVE AGITATED , NOTIFIED MEAT CARVER NILDA PHELPS NP AND CHARGE NURSE.
--- NOTE | 2022-07-29 22:24 | NUR ---
RN NOTES; PT. REFUSED SKIN ASSESSMENT AND PHOTS TAKEN , ENCOURGED X3 RISKS AND BENEFITS EXPLINED BUT STRONGLY REFUSED , PT. BEHAVIOR UNCOOPERTIVE AGITATED , PARANOID, NON REDIRECTABLE, WILL CONTINUITY WITH CARE .
--- NOTE | 2022-07-30 04:47 | NUR ---
RN NOTES; PT. REFUSED TO GIVE URINE SPECIMEN, ENCOURGED X3 RISKS AND BENEFITS EXPLINED BUT STRONGLY REFUSED , PT. BEHAVIOR UNCOOPERTIVE AGITATED , PARANOID,NON COMPLIANT, NON REDIRECTABLE, WILL CONTINUITY WITH CARE .
--- NOTE | 2022-07-30 06:21 | NUR ---
RN NOTES; PT. REFUSED AM HYGINE CARE AND REFUSED TO BE CHANGED, ENCOURGED X3 RISKS AND BENEFITS EXPLINED BUT STRONGLY REFUSED , PT. BEHAVIOR UNCOOPERTIVE AGITATED , PARANOID,NON COMPLIANT, NON REDIRECTABLE, WILL CONTINUITY WITH CARE .
--- NOTE | 2022-07-30 06:22 | NUR ---
RN NOTES PATIENT IN BED RESTING. EASILY AROUSABLE. A/O X2-3. ABLE TO VERBALIZED NEEDS.EASILY AGITATED, PARANOID, NON-COMPLIANT WITH CARE MOST OF TIME, REFUSED IV INSERTION AT THIS TIME. ON ROOM AIR, TOLERATING WELL, SAFETY MEASURES MAINTAINED: CALL LIGHT WITHIN REACH, BED ALARM ON, WILL CONTUITY WITH CARE.
[2022-07-30 07:00] VITALS: BP 71/35
[2022-07-30] MEDS: APIXABAN 5 MG TABLET PO SCH ×2 (09:00→16:46)
[2022-07-30] MEDS: AMLODIPINE BESYLATE 5 MG TABLET PO SCH (09:00)
[2022-07-30] MEDS: DIVALPROEX SODIUM 125 MG CAP.SPRINK PO SCH ×2 (09:00→20:59)
[2022-07-30] MEDS: METOPROLOL SUCCINATE 50 MG TAB.SR.24H PO SCH (09:00)
[2022-07-30] MEDS: QUETIAPINE FUMARATE 25 MG TABLET PO SCH ×2 (09:00→16:45)
[2022-07-30] MEDS: PANTOPRAZOLE 40 MG VIAL IV SCH (09:00)
--- NOTE | 2022-07-30 11:00 | NUR ---
RN-NOTES RECEIVED PATIENT IN BED AROUND 0714 AM AWAKE A/O X2 ,GUARDED,NO ACUTE DISTRESS NOTED.ENCOURAGED AND ENPLANED RISK AND BENEFITS OF IV INSERTIONS BUT PATIENT GETS ANGRY AND ARGUMENTATIVE USING FOUL LANGUAGE. PATIENT ALSO REFUSED ALL 0900AM MEDICATIONS. CLIENT DEVELOPMENT MANAGER ATTEMPT TO RETAKE VITAL SIGNS BUT PATIENT SCREAM AND YELL AT THE WRIER AND DONATION WORKER STAFF. CHARGE NURSE AND DR. THACKER MADE AWARE.
--- NOTE | 2022-07-30 11:52 | NUR ---
RN-NOTES PATIENT REFUSED LAB DRAW DESPITE ENCOURAGEMENT.
[2022-07-30 12:00] VITALS: BP 113/55
[2022-07-30] MEDS ORDERED: LORAZEPAM 0.5 MG TABLET PO ONE (12:00)
[2022-07-30] MEDS ORDERED: LORAZEPAM INJ 2 MG/ML VIAL IM ONE (12:00)
[2022-07-30 15:52] LABS: BASOPHILS % (AUTO) 0.2 % (0.0-2.0); EOSINOPHILS % (AUTO) 4.4 % (0.0-6.0); HEMATOCRIT 28 % (33-45); HEMOGLOBIN 9.1 g/dL (11.5-14.8); LYMPHOCYTES # (AUTO) 1.5 K/uL (0.8-4.8); LYMPHOCYTES % (AUTO) 61.8 % (20.0-44.0); MEAN CORPUSCULAR HGB CONC 33 g/dl (31.0-36.0); MEAN CORPUSCULAR VOLUME 96 fL (82-100); MONOCYTES # (AUTO) 0.3 K/uL (0.1-1.30); MONOCYTES % (AUTO) 13.1 % (2.0-12.0); NEUTROPHILS # (AUTO) 0.5 K/uL (1.8-8.9); NEUTROPHILS % (AUTO) 20.5 % (43.0-81.0); PLATELET COUNT (AUTO) 71 K/uL (150-450); RED BLOOD CELL COUNT(AUTO) 2.92 MIL/uL (4.0-5.2); WHITE BLOOD COUNT (AUTO) 2.5 K/uL (4.3-11.0)
[2022-07-30 16:07] LABS: ALBUMIN 1.5 g/dL (3.4-5.0); BILIRUBIN,TOTAL 0.6 mg/dL (0.2-1.0); CALCIUM, SERUM 8.7 mg/dL (8.5-10.1); CREATININE 1.8 mg/dL (0.6-1.3); POTASSIUM 4.2 mmol/L (3.5-5.1); TOTAL PROTEIN, SERUM 5.9 g/dL (6.4-8.2)
[2022-07-30 18:13] LABS: EOSINOPHILS % (MANUAL) 4 % (0-4); LYMPHOCYTES % (MANUAL) 49 % (16-48); MONOCYTES % (MANUAL) 4 % (0-11.0); NEUTROPHILS % (MANUAL) 43 (42-76)
--- NOTE | 2022-07-30 19:18 | NUR ---
RN-NOTES PATIENT LYING IN BED WATCHING TV A/O X1,GOOD STEFFI CARE RENDERED. IV LINE ON LEFT HAND # 22 INTACT INFUSING IV FLUID OF NS 1000ML @ 100ML/HR.PATIENT ON BOTH HANDS RESTRAIN DUE TO PULLING IV LINE.ALL NEEDS ATTENDED AND ANTICIPATED. WILL ENDORSE TO INCOMING NURSE FOR CONTINUITY OF CARE.
--- NOTE | 2022-07-30 19:25 | NUR ---
noc rn opening received patient in bed, alert but refused to answer questions. no s/s of apparent distress in room air. no c/o pain at this time nor exhibiting pain via flacc. lt. hand IV access in kerlix wrap running D5NS @100mls/hr. safety in place. will cont. with patient's plan of care.
[2022-07-30 20:00] VITALS: BP 95/52
--- NOTE | 2022-07-30 20:04 | NUR ---
noted to have bila. soft wrist restraints.
[2022-07-30] MEDS: CEFTRIAXONE 1 G in IV D5W 50 ML IV SCH (22:08)
[2022-07-31] VITALS: BP 124/52
[2022-07-31] MEDS: IV D5/ 0.9% NACL 1,000 ML IV PRN ×2 (03:17→13:45)
--- NOTE | 2022-07-31 06:29 | NUR ---
payment rep unable to draw blood after multiple attempts. will come back later after breakfast.
--- NOTE | 2022-07-31 06:31 | NUR ---
noc rn closing patient in bed with eyes closed, arousable to deep pain. bilateral soft wrist restraint in place. no s/s of apparent distress on room air. no c/o pain nor exhibiting pain via flacc. all needs attended. all scheduled medications administered. lt. hand #22G running D5NS @100mls/hr. safety kept in place the whole shift. will endorse to morning shift rn for continuity of patient care.
[2022-07-31 07:00] VITALS: BP 97/53
--- NOTE | 2022-07-31 07:53 | NUR ---
RN OPENING NOTE PATIENT RECEIVED IN BED, AO X 1-2, NON COMPLIANCE, ABLE TO RESPONDS ALL STIMULI. IN NO ACUTE DISTRESS NOTED. RESPIRATORY EVEN AND UNLABORED ON ROOM AIR. SKIN IS WARM TO TOUCH, KEEP CLEAN/DRY. KEPT ELEVATED HOB FOR ENSURE AIRWAY AND ASPIRATION PRECAUTION, ALSO LOWEST POSITION OF THE BED, S/R UP X 2, BED ALARM IS ON AT ALL THE TIMES. ALL SAFETY PRECAUTION APPLIED. CALL LIGHT WITHIN REACH, WILL CONTINUE TO MONITOR.
[2022-07-31] MEDS: AMLODIPINE BESYLATE 5 MG TABLET PO SCH (09:00)
[2022-07-31] MEDS: METOPROLOL SUCCINATE 50 MG TAB.SR.24H PO SCH (09:00)
[2022-07-31] MEDS: DIVALPROEX SODIUM 125 MG CAP.SPRINK PO SCH ×2 (09:11→20:56)
[2022-07-31] MEDS: PANTOPRAZOLE 40 MG VIAL IV SCH (09:11)
[2022-07-31] MEDS: QUETIAPINE FUMARATE 25 MG TABLET PO SCH ×2 (09:11→17:34)
[2022-07-31] MEDS: APIXABAN 5 MG TABLET PO SCH ×2 (09:12→17:34)
--- NOTE | 2022-07-31 09:14 | NUR ---
PATIENT BP-97/53, HR-57, WILL HOLD BP MEDS.
[2022-07-31 09:48] LABS: BASOPHILS % (AUTO) 0.3 % (0.0-2.0); EOSINOPHILS % (AUTO) 4.6 % (0.0-6.0); HEMATOCRIT 28 % (33-45); LYMPHOCYTES # (AUTO) 1.9 K/uL (0.8-4.8); LYMPHOCYTES % (AUTO) 64.8 % (20.0-44.0); MEAN CORPUSCULAR HGB CONC 32 g/dl (31.0-36.0); MEAN CORPUSCULAR VOLUME 99 fL (82-100); MONOCYTES # (AUTO) 0.4 K/uL (0.1-1.30); MONOCYTES % (AUTO) 13.9 % (2.0-12.0); NEUTROPHILS # (AUTO) 0.5 K/uL (1.8-8.9); NEUTROPHILS % (AUTO) 16.4 % (43.0-81.0); PLATELET COUNT (AUTO) 55 K/uL (150-450); RED BLOOD CELL COUNT(AUTO) 2.88 MIL/uL (4.0-5.2); WHITE BLOOD COUNT (AUTO) 2.9 K/uL (4.3-11.0)
[2022-07-31 10:41] LABS: BILIRUBIN,TOTAL 0.5 mg/dL (0.2-1.0); CALCIUM, SERUM 8.4 mg/dL (8.5-10.1); CREATININE 1.6 mg/dL (0.6-1.3); TOTAL PROTEIN, SERUM 5.6 g/dL (6.4-8.2)
[2022-07-31 10:53] LABS: ALBUMIN 1.3 g/dL (3.4-5.0)
--- NOTE | 2022-07-31 11:00 | NUR ---
PATIENT NOTICED CRITICAL LAB RESULTS: PLATELET-55 AND ALBUMIN 1.3, DR. MENA MADE AWARE WHO SAID "OKAY TO GIVE IT ELIQUIS." WILL CONTINUE TO MONITOR CLOSELY.
[2022-07-31 16:00] VITALS: BP_SYST 127; BP_SYST 92; BP_DIAS 47; BP_DIAS 52
--- NOTE | 2022-07-31 16:56 | NUR ---
Patient INR level 1.99, standing order indicated "If INR > 1.5, give Vt-K 10 mg subq x 1 today." Will administer Vt-k 10 mg.
[2022-07-31] MEDS ORDERED: PHYTONADIONE INJ 10 MG/1 ML AMPUL SQ SCH (17:00)
--- NOTE | 2022-07-31 18:00 | NUR ---
RN CLOSING NOTE PATIENT IN BED RESTING. IN NO ACUTE DISTRESS NOTED. RESPIRATORY EVEN AND UNLABORED ON ROOM AIR. SKIN IS WARM TO TOUCH, KEEP CLEAN/DRY, INTACT IV LINE. KEPT ELEVATED HOB FOR ENSURE AIRWAY AND ASPIRATION PRECAUTION. BED IN LOWEST POSITION AND LOCKED. BED ALARM IS ON AT ALL THE TIMES. ALL SAFETY MEASURED IN PLACED. CALL LIGHT WITHIN REACH, WILL ENDORSED TO NEXT SHIFT.
--- NOTE | 2022-07-31 19:41 | NUR ---
noc rn opening received patient in bed with eyes closed, easy to arouse but very drowsy at this time. no s/s of apparent distress on room air. no c/o pain at this time. patient on bila. soft wrist restraints. lt. hand #22g running D5NS @100mls/hr. call light within reach. safety in place. will continue with patient's plan of care.
[2022-07-31 20:08] VITALS: BP 103/59
[2022-07-31] MEDS: CEFTRIAXONE 1 G in IV D5W 50 ML IV SCH (22:09)
[2022-08-01] MEDS: IV D5/ 0.9% NACL 1,000 ML IV PRN ×3 (01:06→20:28)
[2022-08-01 05:59] LABS: BASOPHILS % (AUTO) 0.2 % (0.0-2.0); EOSINOPHILS % (AUTO) 4.9 % (0.0-6.0); HEMATOCRIT 28 % (33-45); LYMPHOCYTES # (AUTO) 1.5 K/uL (0.8-4.8); LYMPHOCYTES % (AUTO) 59.2 % (20.0-44.0); MEAN CORPUSCULAR HGB CONC 32 g/dl (31.0-36.0); MEAN CORPUSCULAR VOLUME 99 fL (82-100); MONOCYTES # (AUTO) 0.3 K/uL (0.1-1.30); MONOCYTES % (AUTO) 11.2 % (2.0-12.0); NEUTROPHILS # (AUTO) 0.6 K/uL (1.8-8.9); NEUTROPHILS % (AUTO) 24.5 % (43.0-81.0); PLATELET COUNT (AUTO) 53 K/uL (150-450); RED BLOOD CELL COUNT(AUTO) 2.86 MIL/uL (4.0-5.2); WHITE BLOOD COUNT (AUTO) 2.5 K/uL (4.3-11.0)
--- NOTE | 2022-08-01 06:28 | NUR ---
noc rn closing patient in bed with eyes closed, easy to arouse. bilateral soft wrist restraint in place. no s/s of apparent distress on room air. no c/o pain nor exhibiting pain via flacc. all needs attended. all scheduled medications administered. lt. hand #22G running D5NS @100mls/hr. safety kept in place the whole shift. will endorse to morning shift rn for continuity of patient care.
[2022-08-01 06:52] LABS: BILIRUBIN,DIRECT 0.3 mg/dL (0.0-0.2); BILIRUBIN,TOTAL 0.4 mg/dL (0.2-1.0); CALCIUM, SERUM 8.4 mg/dL (8.5-10.1); CREATININE 1.6 mg/dL (0.6-1.3); POTASSIUM 4.6 mmol/L (3.5-5.1); TOTAL PROTEIN, SERUM 5.6 g/dL (6.4-8.2)
--- NOTE | 2022-08-01 07:30 | NUR ---
MS RN OPENING NOTES RECEIVED PATIENT ON BED AWAKE AND A/O X1-2. ON ROOM AIR TOLERATING WELL. NO SOB NOTED. NOT IN DISTRESS. WITH NO COMPLAINTS OF PAIN OR DISCOMFORT VIA FLACC LEVEL OF PAIN. WITH IV ACCESS AT THE LEFT HAND G22 WITH D5NS AT 100ML/HR INFUSING WELL. ON BILATERAL SOFT WRIST RESTRAINTS. SAFETY MEASURES IN PLACED. CALL LIGHT WITHIN REACH. BED ON LOWEST LOCKED POSITION, SIDE RAILS UPX2. WILL CONTINUE TO MONITOR.
[2022-08-01 07:31] LABS: ALBUMIN 1.3 g/dL (3.4-5.0)
[2022-08-01 08:06] LABS: IMMUNOGLOBULIN A, SERUM 408 mg/dL (87-352); IMMUNOGLOBULIN G, SERUM 1743 mg/dL (586-1602); IMMUNOGLOBULIN M, SERUM 179 mg/dL (26-217)
[2022-08-01 08:12] VITALS: BP 100/68
[2022-08-01] MEDS: PANTOPRAZOLE 40 MG/PACK PACK PO SCH (08:22)
[2022-08-01] MEDS: QUETIAPINE FUMARATE 25 MG TABLET PO SCH ×2 (08:22→16:46)
[2022-08-01] MEDS: DIVALPROEX SODIUM 125 MG CAP.SPRINK PO SCH ×2 (08:22→21:31)
[2022-08-01] MEDS: APIXABAN 5 MG TABLET PO SCH ×2 (08:23→16:46)
[2022-08-01] MEDS: AMLODIPINE BESYLATE 5 MG TABLET PO SCH (08:23)
[2022-08-01] MEDS: METOPROLOL SUCCINATE 50 MG TAB.SR.24H PO SCH (08:24)
[2022-08-01 08:45] LABS: BASOPHILS % (MANUAL) 0 % (0.0-2.0); EOSINOPHILS % (MANUAL) 1 % (0-4); LYMPHOCYTES % (MANUAL) 55 % (16-48); MONOCYTES % (MANUAL) 12 % (0-11.0); NEUTROPHILS % (MANUAL) 32 (42-76)
[2022-08-01 12:06] LABS: *ANA ANTI-CENTROMERE B AB <0.2 AI (0.0-0.9); *ANA ANTI-DNA(DS) AB, QN 1 IU/mL (0-9); *ANA ANTI-JO-1 <0.2 AI (0.0-0.9); *ANA ANTICHROMATIN ANTIBODY <0.2 AI (0.0-0.9); *ANA RNP ANTIBODIES <0.2 AI (0.0-0.9); *ANA SJOGREN'S ANTI-SS-A <0.2 AI (0.0-0.9); *ANA SJOGREN'S ANTI-SS-B <0.2 AI (0.0-0.9); *ANAANTI-SCLERODERMA-70 AB <0.2 AI (0.0-0.9); *ANASMITH AB <0.2 AI (0.0-0.9)
[2022-08-01 14:07] LABS: *SPE A/G RATIO 0.5 (0.7-1.7); *SPE ALPHA-1-GLOBULIN 0.2 g/dL (0.0-0.4); *SPE ALPHA-2-GLOBULIN 0.4 g/dL (0.4-1.0); *SPE BETA GLOBULIN 0.8 g/dL (0.7-1.3); *SPE M-SPIKE Not Observed g/dL (Not Observed)
[2022-08-01 15:37] VITALS: BP 96/50
--- NOTE | 2022-08-01 16:40 | NUR ---
RN NOTE REPORTED TO DR. DUARTE REGARDING PATIENT'S PLATELET TRENDING DOWN TO 53 AND PT IS ALSO TAKING ELIQUIS 5MG PO BID. DR. UDARTE ADVISED TO CONTINUE GIVING ELIQUIS 5MG BID PO.
[2022-08-01] MEDS ORDERED: Folic acid 1 MG in IV D5W 50 ML IV SCH (18:00)
--- NOTE | 2022-08-01 18:14 | NUR ---
MS RN CLOSING NOTES PATIENT ON BED AWAKE AND A/O X1-2. ON ROOM AIR TOLERATING WELL. NO SOB NOTED. NOT IN DISTRESS. WITH NO COMPLAINTS OF PAIN OR DISCOMFORT VIA FLACC LEVEL OF PAIN. WITH IV ACCESS AT THE LEFT HAND G22 WITH D5NS AT 100ML/HR INFUSING WELL. ON BILATERAL SOFT WRIST RESTRAINTS. DUE MEDS GIVEN. SAFETY MEASURES IN PLACED. CALL LIGHT WITHIN REACH. BED ON LOWEST LOCKED POSITION, SIDE RAILS UPX2. WILL ENDORSE TO NEXT SHIFT FOR MARILYNN.
--- NOTE | 2022-08-01 19:55 | NUR ---
RN OPENING NOTES RECEIVED PT IN BED, AWAKE. AOx3. ON RA AND TOLERATING WELL. NO SOB NOTED. NO S/SX OF RESPIRATORY DISTRESS NOTED. IV ACCESS IN L HAND #22G RUNNING D5NS @ 100 ML/HR. SAFETY PRECAUTIONS IN PLACE: BED IN LOWEST, LOCKED POSITION, SIDERAILS UPx2, AND BRAKES ON. TABLE AND CALL LIGHT WITHIN REACH. ALL NEEDS MET AT THIS TIME.
[2022-08-01 20:00] VITALS: BP 89/51
[2022-08-01] MEDS: CEFTRIAXONE 1 G in IV D5W 50 ML IV SCH (21:32)
--- NOTE | 2022-08-01 21:35 | NUR ---
RN NOTES REASSESSED BLOOD PRESSURE 110/57.
[2022-08-02] MEDS: IV D5/ 0.9% NACL 1,000 ML IV PRN ×2 (06:17→17:08)
--- NOTE | 2022-08-02 07:02 | NUR ---
RN CLOSING NOTES PT IN BED, AWAKE. AOx3. ON RA AND TOLERATING WELL. NO SOB NOTED. NO S/SX OF RESPIRATORY DISTRESS NOTED. IV ACCESS IN L HAND #22G RUNNING D5NS @ 100 ML/HR. ALL ORDERS CARRIED OUT. ALL NEEDS MET. PT KEPT CLEAN AND DRY. SAFETY PRECAUTIONS IN PLACE: BED IN LOWEST, LOCKED POSITION, SIDERAILS UPx2, AND BRAKES ON. TABLE AND CALL LIGHT WITHIN REACH. WILL ENDORSE TO ONCOMING SHIFT FOR MARILYNN.
[2022-08-02] MEDS: AMLODIPINE BESYLATE 5 MG TABLET PO SCH (09:00)
[2022-08-02] MEDS: METOPROLOL SUCCINATE 50 MG TAB.SR.24H PO SCH (09:00)
[2022-08-02] MEDS: APIXABAN 5 MG TABLET PO SCH ×2 (09:00→21:31)
[2022-08-02 09:19] VITALS: BP 99/54
[2022-08-02 09:21] LABS: BASOPHILS % (AUTO) 0.2 % (0.0-2.0); EOSINOPHILS % (AUTO) 2.4 % (0.0-6.0); HEMATOCRIT 28 % (33-45); HEMOGLOBIN 8.7 g/dL (11.5-14.8); LYMPHOCYTES # (AUTO) 1.9 K/uL (0.8-4.8); LYMPHOCYTES % (AUTO) 43.5 % (20.0-44.0); MEAN CORPUSCULAR HGB CONC 31 g/dl (31.0-36.0); MEAN CORPUSCULAR VOLUME 100 fL (82-100); MONOCYTES % (AUTO) 23.9 % (2.0-12.0); NEUTROPHILS # (AUTO) 1.3 K/uL (1.8-8.9); PLATELET COUNT (AUTO) 51 K/uL (150-450); RED BLOOD CELL COUNT(AUTO) 2.76 MIL/uL (4.0-5.2); WHITE BLOOD COUNT (AUTO) 4.4 K/uL (4.3-11.0)
[2022-08-02] MEDS: QUETIAPINE FUMARATE 25 MG TABLET PO SCH ×2 (09:25→16:33)
[2022-08-02] MEDS: PANTOPRAZOLE 40 MG/PACK PACK PO SCH (09:25)
[2022-08-02] MEDS: DIVALPROEX SODIUM 125 MG CAP.SPRINK PO SCH ×2 (09:25→21:32)
[2022-08-02 09:46] LABS: BILIRUBIN,TOTAL 0.4 mg/dL (0.2-1.0); CALCIUM, SERUM 8.1 mg/dL (8.5-10.1); CREATININE 1.4 mg/dL (0.6-1.3); POTASSIUM 4.5 mmol/L (3.5-5.1); TOTAL PROTEIN, SERUM 5.4 g/dL (6.4-8.2)
[2022-08-02 11:30] LABS: ALBUMIN 1.2 g/dL (3.4-5.0)
[2022-08-02 12:44] LABS: BAND % (MANUAL) 11 % (0.0-5.0); EOSINOPHILS % (MANUAL) 3 % (0-4); LYMPHOCYTES % (MANUAL) 50 % (16-48); MONOCYTES % (MANUAL) 20 % (0-11.0); NEUTROPHILS % (MANUAL) 16 (42-76)
[2022-08-02] MEDS: FOLIC ACID 1 MG TABLET PO SCH (14:19)
[2022-08-02 16:10] VITALS: BP 99/51
--- NOTE | 2022-08-02 19:29 | NUR ---
MS RN CLOSING NOTES PATIENT ON BED AWAKE AND A/O X1-2. ON ROOM AIR TOLERATING WELL. NO SOB NOTED. NOT IN DISTRESS. WITH NO COMPLAINTS OF PAIN OR DISCOMFORT VIA FLACC LEVEL OF PAIN. WITH IV ACCESS AT THE LEFT HAND G22 WITH D5NS AT 100ML/HR INFUSING WELL. ON BILATERAL SOFT WRIST RESTRAINTS. DUE MEDS GIVEN. FOR TUNNEL CATHETER PLACEMENT TOMORROW. FOR NPO POST MIDNIGHT. SAFETY MEASURES IN PLACED. CALL LIGHT WITHIN REACH. BED ON LOWEST LOCKED POSITION, SIDE RAILS UPX2. WILL ENDORSE TO NEXT SHIFT FOR MARILYNN.
--- NOTE | 2022-08-02 19:30 | NUR ---
MS RN OPENING NOTES PATIENT ON BED AWAKE AND A/O X1. ON ROOM AIR TOLERATING WELL. NO SOB NOTED. NOT IN DISTRESS. WITH NO COMPLAINTS OF PAIN OR DISCOMFORT VIA FLACC LEVEL OF PAIN. WITH IV ACCESS AT THE LEFT HAND G22 WITH D5NS AT 100ML/HR INFUSING WELL. ON BILATERAL SOFT WRIST RESTRAINTS.SAFETY MEASURES IN PLACED. CALL LIGHT WITHIN REACH. BED ON LOWEST LOCKED POSITION, SIDE RAILS UPX2.
[2022-08-02 20:00] VITALS: BP 88/47
[2022-08-02] MEDS: CEFTRIAXONE 1 G in IV D5W 50 ML IV SCH (21:54)
--- NOTE | 2022-08-03 06:35 | NUR ---
MS RN CLOSING NOTES PATIENT ON BED AWAKE AND A/O X1. ON ROOM AIR TOLERATING WELL. NO SOB NOTED. NOT IN DISTRESS. WITH NO COMPLAINTS OF PAIN OR DISCOMFORT VIA FLACC LEVEL OF PAIN. WITH IV ACCESS AT THE LEFT HAND G22 WITH D5NS AT 100ML/HR INFUSING WELL. ON BILATERAL SOFT WRIST RESTRAINTS. REMOVED Q2 HOURS CIRCULATION CHECKED.SAFETY MEASURES IN PLACED. CALL LIGHT WITHIN REACH. BED ON LOWEST LOCKED POSITION, SIDE RAILS UPX2.
[2022-08-03 07:40] LABS: BASOPHILS % (AUTO) 0.2 % (0.0-2.0); HEMATOCRIT 24 % (33-45); HEMOGLOBIN 7.7 g/dL (11.5-14.8); LYMPHOCYTES # (AUTO) 2.1 K/uL (0.8-4.8); LYMPHOCYTES % (AUTO) 42.3 % (20.0-44.0); MEAN CORPUSCULAR HGB CONC 32 g/dl (31.0-36.0); MEAN CORPUSCULAR VOLUME 100 fL (82-100); MONOCYTES # (AUTO) 1.4 K/uL (0.1-1.30); MONOCYTES % (AUTO) 27.2 % (2.0-12.0); NEUTROPHILS # (AUTO) 1.4 K/uL (1.8-8.9); NEUTROPHILS % (AUTO) 28.3 % (43.0-81.0); RED BLOOD CELL COUNT(AUTO) 2.43 MIL/uL (4.0-5.2)
--- NOTE | 2022-08-03 07:45 | NUR ---
MS RN OPENING NOTES: RECEIVED PATIENT IN BED ASLEEP, EASILY ROUSED, A/O X1, RESPONDS TO NAME AND TOUCH. ON ROOM AIR TOLERATING WELL. NO SOB NOTED, NO S/S OF PAIN OR DISCOMFORT NOTED VIA FLACC LEVEL OF PAIN. IV ACCESS AT THE LEFT HAND G22 WITH D5NS AT 100ML/HR INFUSING WELL. PT ON BILATERAL SOFT WRIST RESTRAINTS. SAFETY MEASURES IN PLACE. CALL LIGHT WITHIN REACH. BED ON LOWEST LOCKED POSITION, SIDE RAILS UPX2, WILL CONT WITH PLAN OF CARE DURING SHIFT.
[2022-08-03 08:00] VITALS: BP 117/58
[2022-08-03 08:00] LABS: PLATELET COUNT (AUTO) 40 K/uL (150-450)
[2022-08-03 08:11] LABS: BILIRUBIN,DIRECT 0.4 mg/dL (0.0-0.2); BILIRUBIN,TOTAL 0.5 mg/dL (0.2-1.0); CALCIUM, SERUM 8.2 mg/dL (8.5-10.1); CREATININE 1.5 mg/dL (0.6-1.3); MAGNESIUM 1.6 mg/dL (1.8-2.4); POTASSIUM 4.4 mmol/L (3.5-5.1)
[2022-08-03 08:26] LABS: ALBUMIN 1.1 g/dL (3.4-5.0)
[2022-08-03] MEDS: QUETIAPINE FUMARATE 25 MG TABLET PO SCH ×2 (08:48→17:26)
[2022-08-03] MEDS: DIVALPROEX SODIUM 125 MG CAP.SPRINK PO SCH ×2 (08:48→20:54)
[2022-08-03] MEDS: AMLODIPINE BESYLATE 5 MG TABLET PO SCH (08:49)
[2022-08-03] MEDS: FOLIC ACID 1 MG TABLET PO SCH (08:49)
[2022-08-03] MEDS: PANTOPRAZOLE 40 MG/PACK PACK PO SCH (08:49)
[2022-08-03] MEDS: METOPROLOL SUCCINATE 50 MG TAB.SR.24H PO SCH (08:49)
[2022-08-03] MEDS: APIXABAN 5 MG TABLET PO SCH ×2 (08:50→21:00)
--- NOTE | 2022-08-03 11:52 | NUR ---
WOUND CARE CONSULT: PT SEEN FOR RT ARM SKIN TEAR. RECOMMENDATIONS MADE FOR WOUND CARE AND SKIN PROTECTION. DISCUSSED WITH NURSING STAFF. MD IN AGREEMENT WITH PLAN OF CARE.
[2022-08-03] MEDS ORDERED: MAGNESIUM OXIDE 400 MG TABLET PO ONE (12:00)
[2022-08-03] MEDS: IV D5/ 0.9% NACL 1,000 ML IV PRN (13:50)
[2022-08-03 17:00] VITALS: BP_SYST 117; BP_SYST 95; BP_DIAS 40; BP_DIAS 58
--- NOTE | 2022-08-03 20:14 | NUR ---
MS RN CLOSING NOTES: PATIENT IN BED ASLEEP, EASILY ROUSED, A/O X1, RESPONDS TO NAME AND TOUCH. ON ROOM AIR TOLERATING WELL. NO SOB NOTED, NO S/S OF PAIN OR DISCOMFORT NOTED VIA FLACC LEVEL OF PAIN. IV ACCESS AT THE LEFT HAND G22 WITH D5NS AT 100ML/HR, INFUSING WELL. PT ON BILATERAL SOFT WRIST RESTRAINTS. DUE MEDS GIVEN, WOUND CARE DONE. KEPT PT DRY, CLEAN AND COMFORTABLE. SAFETY MEASURES IN PLACE. CALL LIGHT WITHIN REACH. BED ON LOWEST LOCKED POSITION, SIDE RAILS UPX2, ENDORSED TO PM SHIFT.
[2022-08-03] MEDS ORDERED: SULFAMETH/TRIMETH 800/160 MG 1 UDTAB TABLET PO SCH (21:00)
[2022-08-03] MEDS ORDERED: IV NS 0.9% 1,000 ML IV ONE (21:30)
[2022-08-03 21:40] LABS: BAND % (MANUAL) 12 % (0.0-5.0); EOSINOPHILS % (MANUAL) 1 % (0-4); LYMPHOCYTES % (MANUAL) 36 % (16-48); MONOCYTES % (MANUAL) 10 % (0-11.0); NEUTROPHILS % (MANUAL) 41 (42-76)
[2022-08-04] VITALS (86 sets, daily range): BP systolic 64–146; BP diastolic 32–99
[2022-08-04] MEDS ORDERED: NOREPINEPHRINE 8MG/250ML RTU 250 ML IV ONE (02:22)
--- NOTE | 2022-08-04 02:30 | NUR ---
PIPE FITTINGS MOLDER NOTES PATIENT TRANSFERRED TO ICU FROM [facility] FOR LOW BP. PATIENT IS NON-INTERACTIVE, RESPONDS TO LIGHT PAINFUL STIMULI ONLY, NO COMPREHENSIBLE WORDS. PATIENT IS BREATHING ON ROOM AIR, TOLERATING WELL, 02 SAT 99%, NO SOB NOTED. PATIENT'S TELE MONITOR READS NSR WITH HR OF 68, NO DISTRESS NOTED ON PATIENT. HOSPITALIST DIRECTOR OF SUSTAINABILITY ORDERED PATIENT TO BE STARTED ON LEVO DRIP FOR LOW BP, WILL CARRY OUT ORDERS. SAFETY MEASURES IMPLEMENTED PER HOSPITAL PROTOCOLS. WILL CONTINUE TO MONITOR PATIENT.
[2022-08-04] MEDS: NOREPINEPHRINE 8 MG in IV NS 0.9% 242 ML IV PRN ×2 (02:49→07:03)
--- NOTE | 2022-08-04 07:10 | NUR ---
UPPER MARKER OPENING NOTE: RECEIVED PT. IN BED, NON-INTERACTIVE, LETHARGIC, OPENS EYES TO NAME, TACTILE AND PAINFUL STIMULI. ON RA, SATURATING AT 95%. NO S/S OF RESPIRATORY DISTRESS. MOTOR VEHICLE ASSEMBLY SUPERVISOR READS CONTROLLED AFIB WITH HR OF 131 BPM AT THIS TIME. PT. ON DIAPER. R ARM SKIN TEAR NOTED. WILL DO WOUND TREATMENT ORDERED. PT. HAS L HAND #24G, PATENT, FLUSHING WELL, SALINE LOCKED; MATHEW MIDLINE WITH LEVO RUNNING AT 0.5MCG/KG/MIN. IV DRESSINGS C/D/I WITH NO S/S OF INFILTRATION. PT.'S TEMP WAS 95.8F AT 0400. PT. RECEIVED ON MARQUEZ HUGGER. WILL MONITOR TEMP. SAFETY MEASURES IN PLACE: BED IN LOWEST AND LOCKED POSITION, HOB ELEVATED AT 30 DEGREES, SIDE RAILS UPX2, BED ALARM ON, CALL LIGHT WITHIN REACH. WILL TURN AND REPOSITION AT LEAST Q2H. WILL CONTINUE TO MONITOR PT. FOR ANY CHANGES.
[2022-08-04 08:28] LABS: BASOPHILS % (AUTO) 0.3 % (0.0-2.0); EOSINOPHILS % (AUTO) 1.8 % (0.0-6.0); HEMATOCRIT 24 % (33-45); HEMOGLOBIN 7.7 g/dL (11.5-14.8); LYMPHOCYTES # (AUTO) 1.9 K/uL (0.8-4.8); LYMPHOCYTES % (AUTO) 44.6 % (20.0-44.0); MEAN CORPUSCULAR HGB CONC 32 g/dl (31.0-36.0); MEAN CORPUSCULAR VOLUME 100 fL (82-100); NEUTROPHILS # (AUTO) 1.3 K/uL (1.8-8.9); NEUTROPHILS % (AUTO) 30.3 % (43.0-81.0); PLATELET COUNT (AUTO) 64 K/uL (150-450); RED BLOOD CELL COUNT(AUTO) 2.43 MIL/uL (4.0-5.2); WHITE BLOOD COUNT (AUTO) 4.3 K/uL (4.3-11.0)
[2022-08-04 08:49] LABS: CALCIUM, SERUM 8.5 mg/dL (8.5-10.1); CREATININE 1.5 mg/dL (0.6-1.3); MAGNESIUM 1.4 mg/dL (1.8-2.4); POTASSIUM 3.9 mmol/L (3.5-5.1)
[2022-08-04] MEDS ORDERED: Magnesium 1GM/D5W 100ML PREMIX 100 ML IV SCH (10:00)
[2022-08-04 10:23] LABS: BILIRUBIN,DIRECT 0.6 mg/dL (0.0-0.2); BILIRUBIN,TOTAL 0.7 mg/dL (0.2-1.0); TOTAL PROTEIN, SERUM 5.8 g/dL (6.4-8.2)
[2022-08-04] MEDS: IV D5/ 0.9% NACL 1,000 ML IV PRN (10:27)
[2022-08-04 10:33] LABS: ALBUMIN 1.2 g/dL (3.4-5.0)
[2022-08-04] MEDS: NOREPINEPHRINE 32 MG in IV NS 0.9% 242 ML IV PRN ×2 (10:34→23:21)
--- NOTE | 2022-08-04 14:00 | NUR ---
SUPERVISOR SHELLFISH FARMING NOTE: ARSHAD CATH INSERTED, DRAINING CLEAR ANNA URINE. PT. NOT STABLE ENOUGH FOR ANY ORAL INTAKE SINCE THIS MORNING. MORNING PO MEDS HELD. NG TUBE INSERTED, X-RAY CONFIRMED PLACEMENT. GASTRIC RESIDUAL OF [address] IQBAL NOTIFIED AND ORDERED TO PLACE PT. ON NPO AND PUT ON LOW INTERMITTENT SUCTION. WILL CONTINUE TO MONITOR FOR ANY CHANGES.
[2022-08-04] MEDS ORDERED: IV 1/2NS 1000 ML 1,000 ML IV SCH (16:30)
[2022-08-04] MEDS: ENSURE ENLIVE 237 ML LIQUID (VANILLA) PO SCH (17:00)
[2022-08-04 17:18] LABS: BAND % (MANUAL) 5 % (0.0-5.0); EOSINOPHILS % (MANUAL) 2 % (0-4); LYMPHOCYTES % (MANUAL) 36 % (16-48); MONOCYTES % (MANUAL) 15 % (0-11.0); NEUTROPHILS % (MANUAL) 42 (42-76)
[2022-08-04] MEDS: QUETIAPINE FUMARATE 25 MG TABLET PO SCH (17:48)
[2022-08-04] MEDS: PANTOPRAZOLE 40 MG/PACK PACK PO SCH (17:48)
[2022-08-04] MEDS: FOLIC ACID 1 MG TABLET PO SCH (17:49)
[2022-08-04] MEDS: DIVALPROEX SODIUM 125 MG CAP.SPRINK PO SCH ×2 (17:49→21:21)
[2022-08-04] MEDS: APIXABAN 5 MG TABLET PO SCH ×2 (17:50→21:23)
[2022-08-04] MEDS: ZOSYN IVPB 3.375 G in IV D5W 50ml IV SCH ×2 (17:51→23:10)
--- NOTE | 2022-08-04 18:00 | NUR ---
FITNESS TEACHER NOTE: DR. IQBAL IN UNIT. CLARIFIED THAT PT. IS ON NPO BUT CAN TAKE MEDS VIA NG TUBE. MORNING PO MEDS THAT WERE HELD IS NOW GIVEN. DR. IQBAL OK TO GIVE ELIQUIS WITH H/H OF 7.7/24 AND PLT OF 64. WILL CONTINUE TO MONITOR PT. FOR ANY CHANGES.
--- NOTE | 2022-08-04 19:15 | NUR ---
ARTIST COLOR SEPARATION CLOSING NOTE: PT. REMAINS IN BED, STILL NON-INTERACTIVE, LETHARGIC, OPENS EYES TO NAME SOMETIMES, ALSO TO TACTILE AND PAINFUL STIMULI. NOW ON 4L O2 VIA NASAL CANNULA, SATURATING AT 98%. NO S/S OF RESPIRATORY DISTRESS. METAL ORGAN PIPE MAKER READS CONTROLLED AFIB WITH HR OF 89 BPM AT THIS TIME. PT. NOW HAS NG TUBE, NOW OFF SUCTION AFTER GIVING MEDS. ENDORSED TO CLEAN ROOM TECHNICIAN RN TO TURN BACK ON AROUND 1999. PT. ON ARSHAD CATH WITH 200 ML ANNA CLEAR URINE THIS SHIFT. NO BM. R ARM SKIN TEAR NOTED. WOUND TREATMENT DONE ORDERED. PT. HAS L HAND #24G, PATENT, FLUSHING WELL, SALINE LOCKED; MATHEW PICC LINE WITH 1/2 NS RUNNING AT 75ML/HR AND LEVO RUNNING AT 0.4 MCG/KG/MIN. IV DRESSINGS C/D/I WITH NO S/S OF INFILTRATION. SAFETY MEASURES MAINTAINED: BED IN LOWEST AND LOCKED POSITION, HOB ELEVATED AT 30 DEGREES, SIDE RAILS UPX2, BED ALARM ON, CALL LIGHT WITHIN REACH. TURNED AND REPOSITIONED AT LEAST Q2H. ENDORSED CONTINUITY OF CARE TO CLEAN ROOM TECHNICIAN RN.
--- NOTE | 2022-08-04 19:20 | NUR ---
RN NOTES RECEIVED REPORT FROM MORNING RN. PATIENT IN B4ED A/O X1. ON OXYGEN INHALATION AT 4 LPM VIA NASAL CANULA SATING 100%. NO SOB NO DISTRESS NOTED AT THIS TIME. WITH IV ACCESS AT R UA PICC LINE PATENT FLUSHES WELL. WITH ONGOING IVF 1/2 NS @ 75ML/HR. ON LEVOPHED AT 0.4 MCG/KG/MIN @ 18.46 ML/HR. WITH NASOGASTRIC TUBE AT R NARE PATENT CONNECTED TO LOW INTERMITTENT SUCTION DRAINING DARK COLORED OUTPUT. WITH ARSHAD CATHETER CONNECTED TO URINE BAG DRAINING YELLOWISH URINE OUTPUT. VITAL SIGNS TAKEN AND RECORDED. AFEBRILE. ALL SAFETY MEASURES IN PLACE AT ALL TIMES. HOB ELEVATED. CALL LIGHT WITHIN REACH
--- NOTE | 2022-08-04 22:30 | NUR ---
RN NOTES CVP STARTED ORDERED. WILL CLOSELY MONITOR THE PATIENT
[2022-08-05] VITALS (91 sets, daily range): BP systolic 56–162; BP diastolic 36–107
--- NOTE | 2022-08-05 03:55 | NUR ---
RN NOTES NOTED HR UP TO 162, BP 99/70. CN MADE AWARE STAT EKG ORDERED.
--- NOTE | 2022-08-05 04:10 | NUR ---
RN NOTES INFORMED NILA BASTING MACHINE OPERATOR PATIENT EKG RESULT IS SVT 162 WITH NEW ORDER TO GIVE NS 1L BOLUS. THEN GIVE ADENOSINE 6MG IVP. AND START NEOSYNEPHRINE.
[2022-08-05] MEDS ORDERED: PHENYLEPHRINE 10 MG/ML VIAL ONE (04:29)
[2022-08-05] MEDS ORDERED: IV NS 0.9% 1,000 ML IV ONE (04:30)
[2022-08-05] MEDS ORDERED: IV 1/2NS 1000 ML 1,000 ML IV PRN (04:30)
[2022-08-05] MEDS: PHENYLEPHRINE 50 MG in IV NS 0.9% 245 ML IV PRN ×3 (04:38→11:29)
--- NOTE | 2022-08-05 04:40 | NUR ---
RN NOTES ADENOCARD 6 MG IVP GIVEN ORDERED. DR DOTSON INFORMED HR STILL ON 150'S
[2022-08-05] MEDS ORDERED: ADENOSINE 6 MG/2 ML VIAL ONE (04:56)
[2022-08-05] MEDS ORDERED: ADENOSINE 6 MG/2 ML VIAL IVP ONE ×2 (05:00)
[2022-08-05] MEDS ORDERED: AMIODARONE 150 MG in IV D5W 100 ML IV ONE (05:00)
[2022-08-05] MEDS ORDERED: AMIODARONE 450 MG in IV D5W 241 ML IV PRN (05:00)
--- NOTE | 2022-08-05 05:00 | NUR ---
RN NOTES CALLED DR DOTSON HR 130'S AFIB. WITH NEW ORDER TO HOLD ADENOCARD 12MG AND START AMIODARONE BOLUS THEN DRIP.
[2022-08-05 05:04] LABS: CALCIUM, SERUM 8.1 mg/dL (8.5-10.1); CREATININE 1.5 mg/dL (0.6-1.3); MAGNESIUM 1.7 mg/dL (1.8-2.4); PHOSPHORUS 3.7 mg/dL (2.5-4.9)
[2022-08-05] MEDS ORDERED: AMIODARONE 150 MG/3 ML VIAL IV ONE ×2 (05:06→05:07)
[2022-08-05 05:07] LABS: BILIRUBIN,DIRECT 0.5 mg/dL (0.0-0.2); BILIRUBIN,TOTAL 0.7 mg/dL (0.2-1.0); TOTAL PROTEIN, SERUM 5.2 g/dL (6.4-8.2)
[2022-08-05 05:08] LABS: ALBUMIN 1.1 g/dL (3.4-5.0)
[2022-08-05] MEDS ORDERED: IV D5W 1,000 ML IV ONE (05:30)
[2022-08-05 05:48] LABS: BASOPHILS % (AUTO) 0.3 % (0.0-2.0); EOSINOPHILS % (AUTO) 0.6 % (0.0-6.0); LYMPHOCYTES # (AUTO) 1.8 K/uL (0.8-4.8); LYMPHOCYTES % (AUTO) 47.8 % (20.0-44.0); MEAN CORPUSCULAR HGB CONC 32 g/dl (31.0-36.0); MEAN CORPUSCULAR VOLUME 100 fL (82-100); MONOCYTES # (AUTO) 0.8 K/uL (0.1-1.30); MONOCYTES % (AUTO) 21.1 % (2.0-12.0); NEUTROPHILS # (AUTO) 1.1 K/uL (1.8-8.9); NEUTROPHILS % (AUTO) 30.2 % (43.0-81.0); PLATELET COUNT (AUTO) 52 K/uL (150-450); WHITE BLOOD COUNT (AUTO) 3.7 K/uL (4.3-11.0)
[2022-08-05 05:49] LABS: HEMATOCRIT 20 % (33-45); HEMOGLOBIN 6.4 g/dL (11.5-14.8); RED BLOOD CELL COUNT(AUTO) 1.99 MIL/uL (4.0-5.2)
[2022-08-05] MEDS: Magnesium 1GM/D5W 100ML PREMIX 100 ML IV SCH ×2 (05:49→07:39)
--- NOTE | 2022-08-05 06:00 | NUR ---
RN NOTES LAB CALLED RELAYED HEMOGLOBIN 6.4, PLATELETS 52. RELAYED TO DR DOTSON WITH ORDER TO TRANSFUSE 1 UNIT PRBC AND H&H AFTER TRANSFUSION. BP STILL LOW ON 70'S WITH ORDER TO START VASOPRESSIN STARTED ORDERED.
[2022-08-05] MEDS ORDERED: VASOPRESSIN INJ 20 UNIT/ML VIAL ONE (06:01)
[2022-08-05] MEDS: VASOPRESSIN INJ 40 UNIT in IV NS 0.9% 38 ML IV PRN (06:07)
[2022-08-05] MEDS: ZOSYN IVPB 3.375 G in IV D5W 50ml IV SCH ×2 (06:15→13:08)
[2022-08-05] MEDS ORDERED: PANTOPRAZOLE 40 MG VIAL ONE (06:20)
[2022-08-05] MEDS: PANTOPRAZOLE 80 MG in IV NS 0.9% 500 ML IV PRN ×2 (06:24→16:11)
--- NOTE | 2022-08-05 07:32 | NUR ---
RN NOTES PATIENT STILL ON NASAL CANULA SATING 98%. ON MAYLIN DRIP, AMIODARONE DRIP @ 1MG/MIN, VASOPRESSIN @ 0.02 UNITS/MIN, PROTONIX DRIP AT 8MG/MIN. STILL WITH NG CONNECTED TO LOW INTERMITTENT SUCTION WITH COFFEE GROUND EMESIS. ARSHAD PATENT DRAINING YELLOWISH URINE OUTPUT. ALL SAFETY MEASURES IN PLACE AT ALL TIMES. CLOSELY MONITORING RENDERED. WILL ENDORSED TO MORNING SHIFT FOR MARILYNN
[2022-08-05] MEDS: ENSURE ENLIVE 237 ML LIQUID (VANILLA) PO SCH ×3 (08:00→17:00)
[2022-08-05] MEDS: APIXABAN 5 MG TABLET PO SCH ×2 (09:00→10:39)
[2022-08-05] MEDS ORDERED: QUETIAPINE FUMARATE 25 MG TABLET PO SCH (09:00)
[2022-08-05] MEDS: DIVALPROEX SODIUM 125 MG CAP.SPRINK PO SCH ×2 (10:39→21:00)
[2022-08-05] MEDS: FOLIC ACID 1 MG TABLET PO SCH (10:40)
[2022-08-05 11:41] LABS: BAND % (MANUAL) 19 % (0.0-5.0); EOSINOPHILS % (MANUAL) 3 % (0-4); LYMPHOCYTES % (MANUAL) 50 % (16-48); MONOCYTES % (MANUAL) 19 % (0-11.0); NEUTROPHILS % (MANUAL) 9 (42-76)
[2022-08-05] MEDS ORDERED: Magnesium 1GM/D5W 100ML PREMIX 100 ML IV SCH (12:00)
[2022-08-05 12:02] LABS: ABG BASE EXCESS -14.2 mmol/L; ABG PCO2 20.1 mmHg (35.0-45.0); ABG PH 7.328 (7.350-7.450); ABG PO2 74.3 mmHg (75.0-100.0); AaDO2 187.8 mmHg; COHb 0.3 % (0.5-1.5); MetHb 0.3 % (0.0-1.5); O2Hb 93.4 % (94.0-97.0); SITE, ABG Right Femoral; VENT MODE, BG nasal cannula
--- NOTE | 2022-08-05 12:20 | NUR ---
PT. INTUBATED BY NADEEM SABILLON PER DR. SHIRLEY FOR AIRWAY PROTECTION AND TOO MUCH SECRETIONS. PT. INTUBATED WITH 7.0 ET TUBE SECURED @ 21 CM LIPLINE. CO2 DETECTOR CHANGED TO YELLOW COLOR. BREATH SOUNDS COARSE RHONCHI BILATERAL WITH SYMMETRICAL CHEST RISE POST INTUBATION. VENT SETTINGS BELOW ORDER: AC 22 VT 500 ML FIO2 100% PEEP +5 VENT PLUGGED INTO RED OUTLET WITH ALARMS ON AND FUNCTIONING. BVM @ BEDSIDE Addendum: 08/05/22 at 1241 by ELLY ROBLES RT Amended: Links added.
[2022-08-05] MEDS: PROPOFOL 100 ML IV PRN ×2 (12:47→18:03)
[2022-08-05] MEDS ORDERED: ETOPOSIDE IV ONE (13:31)
[2022-08-05] MEDS: AMIODARONE HCL 200 MG TABLET PO SCH ×2 (14:30→21:00)
[2022-08-05] MEDS: PHENYLEPHRINE 100 MG in IV NS 0.9% 240 ML IV PRN ×2 (14:49→23:38)
[2022-08-05 15:09] LABS: ABG BASE EXCESS -13.6 mmol/L; ABG OXYGEN SATURATION 98.5 % (92.0-98.5); ABG PCO2 27.2 mmHg (35.0-45.0); ABG PH 7.266 (7.350-7.450); ABG PO2 155.1 mmHg (75.0-100.0); AaDO2 530.7 mmHg; COHb 0.3 % (0.5-1.5); MetHb 0.3 % (0.0-1.5); O2Hb 97.9 % (94.0-97.0); PEEP,BG 5 cm H2O; SITE, ABG Right Femoral; VT, ABG 500 mL
[2022-08-05 15:25] LABS: BASOPHILS % (AUTO) 0.1 % (0.0-2.0); EOSINOPHILS % (AUTO) 0.5 % (0.0-6.0); LYMPHOCYTES # (AUTO) 1.5 K/uL (0.8-4.8); LYMPHOCYTES % (AUTO) 41.7 % (20.0-44.0); MEAN CORPUSCULAR HGB CONC 34 g/dl (31.0-36.0); MEAN CORPUSCULAR VOLUME 98 fL (82-100); MONOCYTES # (AUTO) 0.6 K/uL (0.1-1.30); MONOCYTES % (AUTO) 17.5 % (2.0-12.0); NEUTROPHILS # (AUTO) 1.5 K/uL (1.8-8.9); NEUTROPHILS % (AUTO) 40.2 % (43.0-81.0); WHITE BLOOD COUNT (AUTO) 3.7 K/uL (4.3-11.0)
--- NOTE | 2022-08-05 15:29 | NUR ---
vent changes below per dr. moses fio2 60% Addendum: 08/05/22 at 1530 by ELLY ROBLES RT Amended: Links added.
[2022-08-05 15:53] LABS: D-DIMER 0.59 mg/L(FEU (0.17-0.50); RED BLOOD CELL COUNT(AUTO) 1.99 MIL/uL (4.0-5.2)
[2022-08-05 15:56] LABS: HEMATOCRIT 20 % (33-45); HEMOGLOBIN 6.6 g/dL (11.5-14.8); PLATELET COUNT (AUTO) 35 K/uL (150-450)
--- NOTE | 2022-08-05 16:00 | NUR ---
CRITICAL LABS PLT 35, H/H 6.6/20. DR IQBAL AND NORY SPUDDER NOTIFIED. ORDERS FOR 1 MORE UNIT OF PRBC TODAY. PT RECEIVED 1 UNIT EARLIER THIS SHIFT.
[2022-08-05] MEDS: MEROPENEM 1 G in IV NS 0.9% 100 ML IV SCH (17:29)
[2022-08-05] MEDS: IV D5W 1,000 ML IV PRN (18:10)
[2022-08-05 18:18] LABS: BAND % (MANUAL) 11 % (0.0-5.0); EOSINOPHILS % (MANUAL) 2 % (0-4); LYMPHOCYTES % (MANUAL) 48 % (16-48); METAMYELOCYTES % 7 % (0-0); MONOCYTES % (MANUAL) 2 % (0-11.0); NEUTROPHILS % (MANUAL) 30 (42-76)
--- NOTE | 2022-08-05 18:35 | NUR ---
END OF SHIFT NOTE: PT WAS INTUBATED TODAY AT 1220. PT IS CURRENTLY SEDATED ON PROPOFOL AT 30 MCG/KG/MIN. MAYLIN-SYNEPHRINE INFUSING AT 3 MCG/KG/MIN. VASOPRESSIN INFUSING PER MD ORDERS. PROTONIX GTT INFUSING PER MD ORDERS. 1 UNIT OF PRBCS GIVEN THIS SHIFT, SECOND UNIT WILL BE STARTED BEFORE THE END OF THIS SHIFT. PT CHECKED ON HOURLY AND PRN BY NURSING STAFF.
[2022-08-05] MEDS ORDERED: NOREPINEPHRINE 4 MG/4 ML AMPUL IV ONE (21:46)
[2022-08-05] MEDS ORDERED: NOREPINEPHRINE 32 MG in IV NS 0.9% 218 ML IV PRN (22:00)
[2022-08-05] MEDS: VANCOMYCIN 1.25 GM in IV D5W 250 ML IV SCH (22:00)
--- NOTE | 2022-08-05 22:00 | NUR ---
CIRCLE CUTTING SAW OPERATORCASE OPERATOR VP ANCILLARY MEHNAZ TALKED TO NEXT OF KIN TERRA WILLINGHAM, DAUGHTER, PHONE [phone] OR [phone] UPDATED PT CONDITION & PROGNOSIS. PT IS ON VENTILATOR, 3 PRESSORS- PHENYLEPHRINE, LEVOPHED & VASOPRESSIN. FAMILY AGREED TO CHANGE CODE STATUS TO DNR. PUBLIC HEALTH NUTRITIONIST WAYNE ALFARO, WAS NOTIFIED
[2022-08-06] VITALS (82 sets, daily range): BP systolic 59–135; BP diastolic 26–91
[2022-08-06] MEDS: PANTOPRAZOLE 80 MG in IV NS 0.9% 500 ML IV PRN ×3 (01:16→20:37)
[2022-08-06] MEDS: PHENYLEPHRINE 100 MG in IV NS 0.9% 240 ML IV PRN ×4 (02:07→20:24)
[2022-08-06 04:46] LABS: BASOPHILS % (AUTO) 0.1 % (0.0-2.0); EOSINOPHILS % (AUTO) 1.3 % (0.0-6.0); HEMATOCRIT 30 % (33-45); HEMOGLOBIN 9.9 g/dL (11.5-14.8); LYMPHOCYTES # (AUTO) 1.9 K/uL (0.8-4.8); LYMPHOCYTES % (AUTO) 31.6 % (20.0-44.0); MEAN CORPUSCULAR HGB CONC 33 g/dl (31.0-36.0); MEAN CORPUSCULAR VOLUME 96 fL (82-100); MONOCYTES # (AUTO) 0.5 K/uL (0.1-1.30); MONOCYTES % (AUTO) 8.9 % (2.0-12.0); NEUTROPHILS # (AUTO) 3.4 K/uL (1.8-8.9); NEUTROPHILS % (AUTO) 58.1 % (43.0-81.0); RED BLOOD CELL COUNT(AUTO) 3.15 MIL/uL (4.0-5.2); WHITE BLOOD COUNT (AUTO) 5.9 K/uL (4.3-11.0)
[2022-08-06 04:58] LABS: CALCIUM, SERUM 8.3 mg/dL (8.5-10.1); CREATININE 1.6 mg/dL (0.6-1.3); MAGNESIUM 2.2 mg/dL (1.8-2.4); PHOSPHORUS 2.8 mg/dL (2.5-4.9); POTASSIUM 3.4 mmol/L (3.5-5.1)
[2022-08-06] MEDS: MEROPENEM 1 G in IV NS 0.9% 100 ML IV SCH ×2 (05:00→17:38)
[2022-08-06 05:16] LABS: D-DIMER 2.01 mg/L(FEU (0.17-0.50); PLATELET COUNT (AUTO) 42 K/uL (150-450)
--- NOTE | 2022-08-06 06:00 | NUR ---
0600-FURTHER NOTE: PT ALSO HAS NGT WITH DARK COFFEE-GRND DRAINAGE(APPROX 100CC). PT ALSO IS ON PROTONIX DRIP. PT ALSO RECEIVED 1UPCS-STARTED ON PREVIOUS SHIFT BUT ENDED AT 2150. PT YAZMIN WELL WITH NO S/S OF TRANSFUSION RXN. AM LABS DONE. PT'S DAUGHTER CONTACTED BY CN. ED REGARDING PT'S STATUS AND PT'S CODE STATUS CHANGED TO DNR. PT ENDORSED TO WICHO ROA IN GUARDED COND. DANIELLE SANDS
--- NOTE | 2022-08-06 06:00 | NUR ---
--PT CONT ON VENT VIA ETT. PT HAS MOD-LARGE AMT OF THICK GALLOWAY-WHITE SPUT. POX HAS BEEN 94-100%. PT YAZMIN SX AND RTX WELL. PT HAS RIGHT ARM PICC-LINE. CVP LINE INTACT. PT HAS BEEN RANGING FROMO 8-11. PT HAS BEEN NON-VERBAL. PT OPENS EYES OCCASS. BUT DOESN'T FOLLOW SIMPLE COMMDS. PT WAS ON DIPRAVAN DRIP BUT HAS BEEN OFF SINCE 2200 DUE TO BP DROPPING TO 60's SYSTOLIC. PT'S BP HAS BEEN VERY LABILE. LEVOPHED DRIP STARTED ALSO.ORDER FOR LEVOPEH OBTAINED BY C.N ED. PT YAZMIN WELL . PT IS ALSO ON VASOPRESSIN, NEOSYNEPHRINE, AND PROTONIX DRIP. PT HAS BEEN NON-RESPONSIVE WITHOUT AND DOESN'T FOLLOW SIMPLE COMMDS. LEVOPHED DRIP HAS OFF AND ON DUE TO LABIBLE BP. HR ALSO BECAME ELEVATED AT [phone]'S WHILE ON LEVOPHED DRIP. GEN COND HAS BEEN VERY GRAUDED. PT ENDORSED TO WICHO TAYLOR. DANIELLE SANDS
--- NOTE | 2022-08-06 07:30 | NUR ---
OPENING NOTE: REPORT RECEIVED FROM Lauryn BROOKS RN. LABS AND ORDERS REVIEWED DURING REPORT. PATIENT IS CURRENTLY MAX'D ON MAYLIN-SYNEPHRINE AND VASOPRESSIN PER MD ORDERS. PT WAS MADE DNR OVERNIGHT. NG TUBE TO SUCTION. NO CHANGE IN VENT SETTINGS OVERNIGHT. PROTONIX GTT INFUSING PER MD ORDERS. PROPOFOL WAS TURNED OFF OVERNIGHT FOR LOW BP PER REPORT. PT CHECKED ON HOURLY AND PRN BY NURSING STAFF.
[2022-08-06] MEDS: IV D5W 1,000 ML IV PRN ×2 (07:49→18:18)
[2022-08-06] MEDS: AMIODARONE HCL 200 MG TABLET PO SCH ×2 (08:12→20:09)
[2022-08-06] MEDS: FOLIC ACID 1 MG TABLET PO SCH (08:12)
[2022-08-06] MEDS: DIVALPROEX SODIUM 125 MG CAP.SPRINK PO SCH ×2 (08:12→20:09)
[2022-08-06] MEDS: PROPOFOL 100 ML IV PRN ×2 (08:51→16:56)
[2022-08-06 09:29] LABS: BAND % (MANUAL) 1 % (0.0-5.0); EOSINOPHILS % (MANUAL) 1 % (0-4); LYMPHOCYTES % (MANUAL) 38 % (16-48); MONOCYTES % (MANUAL) 8 % (0-11.0); NEUTROPHILS % (MANUAL) 52 (42-76)
[2022-08-06] MEDS ORDERED: POTASSIUM CL. PREMIX PERIPHER. 50 ML IV SCH (13:00)
[2022-08-06] MEDS: VASOPRESSIN INJ 40 UNIT in IV NS 0.9% 38 ML IV PRN (15:08)
[2022-08-06] MEDS: VANCOMYCIN 1.25 GM in IV D5W 250 ML IV SCH (18:17)
--- NOTE | 2022-08-06 19:30 | NUR ---
END OF SHIFT NOTE: PROPOFOL WAS RESUMED THIS SHIFT, PT WAS ANXIOUS, BITING AT ETT AND ATTEMPTING TO PULL AT TUBES. LEFT WRIST RESTRAINT APPLIED PER MD ORDERS. MAYLIN AND VASOPRESSIN CONTINUE TO BE AT MAX RATE. PT'S DAUGHTER AND SON CAME IN TODAY, TALKED TO RN AND DR IQBAL. THEY BOTH AGREE TO KEEPING PATIENT A DNR. EGD DONE TODAY. NG TUBE WAS REMOVED ACCIDENTLY DURING EGD. OG TUBE REPLACED BY RN. OG TUBE PLACED ON LOW INT SUCTION TO SEE IF PT CONTINUES TO HAVE HIGH OUTPUT PRIOR TO EGD. IF NOT PER DR BENNETT HOLT TO START TF PER ROOFER APPLICATOR RECS. PT CHECKED ON HOURLY AND PRN BY NURSING STAFF.
[2022-08-07] VITALS (85 sets, daily range): BP systolic 69–153; BP diastolic 24–81
[2022-08-07] MEDS: PROPOFOL 100 ML IV PRN ×3 (01:45→16:59)
[2022-08-07] MEDS: PHENYLEPHRINE 100 MG in IV NS 0.9% 240 ML IV PRN ×3 (02:35→15:03)
[2022-08-07] MEDS: MEROPENEM 1 G in IV NS 0.9% 100 ML IV SCH ×2 (04:31→16:58)
[2022-08-07] MEDS: IV D5W 1,000 ML IV PRN ×2 (04:32→13:25)
[2022-08-07 04:55] LABS: BASOPHILS % (AUTO) 0.1 % (0.0-2.0); HEMATOCRIT 27 % (33-45); HEMOGLOBIN 9.1 g/dL (11.5-14.8); LYMPHOCYTES # (AUTO) 1.8 K/uL (0.8-4.8); LYMPHOCYTES % (AUTO) 27.3 % (20.0-44.0); MEAN CORPUSCULAR HGB CONC 33 g/dl (31.0-36.0); MEAN CORPUSCULAR VOLUME 95 fL (82-100); MONOCYTES # (AUTO) 0.7 K/uL (0.1-1.30); MONOCYTES % (AUTO) 10.3 % (2.0-12.0); NEUTROPHILS # (AUTO) 3.9 K/uL (1.8-8.9); NEUTROPHILS % (AUTO) 60.3 % (43.0-81.0); RED BLOOD CELL COUNT(AUTO) 2.86 MIL/uL (4.0-5.2); WHITE BLOOD COUNT (AUTO) 6.5 K/uL (4.3-11.0)
[2022-08-07 04:58] LABS: CALCIUM, SERUM 8.1 mg/dL (8.5-10.1); CREATININE 1.7 mg/dL (0.6-1.3); MAGNESIUM 1.9 mg/dL (1.8-2.4); PHOSPHORUS 3.6 mg/dL (2.5-4.9); POTASSIUM 3.4 mmol/L (3.5-5.1)
[2022-08-07 05:17] LABS: PLATELET COUNT (AUTO) 26 K/uL (150-450)
--- NOTE | 2022-08-07 07:04 | NUR ---
SWITCHBOX ASSEMBLER PT HEMODYNAMICALLY UNSTABLE TO BE TURNED AND REPOSITIONED
--- NOTE | 2022-08-07 08:15 | NUR ---
bedside report given by Jarad.
[2022-08-07 08:40] LABS: ABG PCO2 29.6 mmHg (35.0-45.0); ABG PH 7.232 (7.350-7.450); ABG PO2 57.7 mmHg (75.0-100.0); AaDO2 193.5 mmHg; COHb 0.3 % (0.5-1.5); MetHb 0.1 % (0.0-1.5); O2Hb 86.7 % (94.0-97.0); SITE, ABG Right Radial
[2022-08-07] MEDS: AMIODARONE HCL 200 MG TABLET PO SCH (09:00)
[2022-08-07] MEDS: DIVALPROEX SODIUM 125 MG CAP.SPRINK PO SCH (09:00)
[2022-08-07] MEDS ORDERED: PANTOPRAZOLE 40 MG VIAL IV SCH (09:00)
[2022-08-07] MEDS: FOLIC ACID 1 MG TABLET PO SCH (09:00)
[2022-08-07] MEDS ORDERED: POTASSIUM CL. PREMIX PERIPHER. 50 ML IV SCH (10:00)
[2022-08-07 10:41] LABS: BAND % (MANUAL) 16 % (0.0-5.0); BASOPHILS % (MANUAL) 0 % (0.0-2.0); EOSINOPHILS % (MANUAL) 0 % (0-4); LYMPHOCYTES % (MANUAL) 30 % (16-48); MONOCYTES % (MANUAL) 6 % (0-11.0); NEUTROPHILS % (MANUAL) 48 (42-76)
[2022-08-07] MEDS: VASOPRESSIN INJ 40 UNIT in IV NS 0.9% 38 ML IV PRN (13:25)
--- NOTE | 2022-08-07 16:20 | NUR ---
DR IQBAL MADE AWARE OF LOW PLATELET = 26, NO ORDER MADE. ALSO AWARE OF BP FLUCTUATING BELOW 90s NO ORDER MADE.
--- NOTE | 2022-08-07 16:21 | NUR ---
DR IQBAL NOTIFIED WELL THAT UNABLE TO REPOSITION PT. D/T DESATURATION QUICKLY . NO ORDER MADE.CHARGE NURSE AWARE.
--- NOTE | 2022-08-07 17:35 | NUR ---
RT PATIENT REMAINS ORALLY INTUBATED ON [facility] VENT WITH ORDERED SETTINGS. ETT SECURE AND IN PROPER POSITION. AIRWAY SUCTIONED AND PATENT. PATIENT IN CRITICAL CONDITION. AMBU BAG AT HOB. CONT CURRENT PLAN OF CARE. Addendum: 08/07/22 at 1736 by MELLO TALAMANTES RT Amended: Links added.
[2022-08-07] MEDS: VANCOMYCIN 1.25 GM in IV D5W 250 ML IV SCH (18:07)
--- NOTE | 2022-08-07 19:55 | NUR ---
LOCOMOTIVE FIRER/FIREMAN DAUGHTER TERRA WINKLER WELL OTHER FAMILY MEMBERS AT BEDSIDE AND AGREED TO COMFORT CARE. LEEANN RECEIVED FROM [facility].
[2022-08-07] MEDS ORDERED: DC PROPOFOL WHEN EXTUBATED XX PRN (20:00)
--- NOTE | 2022-08-07 20:00 | NUR ---
CHRONIC DISEASE MANAGER AL MEDICATIONS STOPPED AND MORPHINE 4 MG IV ADMINISTERED.
[2022-08-07] MEDS: MORPHINE SULFATE INJ 4 MG/ML DISP.SYRIN IV PRN ×2 (20:06→21:09)
--- NOTE | 2022-08-07 20:20 | NUR ---
TAR PROCESSING TECHNICIAN PT EXTUBATE BY RT; FAMILY IN UNIT.
--- NOTE | 2022-08-07 20:24 | NUR ---
RT NOTE PT EXTUBATED AT THIS TIME AND PLACED ON 28% NASAL CANNULA. CORPORATE TRAVEL COORDINATORWICHO BYRNE AND WICHO TAM @ BEDSIDE. FAMILY BEDSIDE AT THIS TIME.
[2022-08-07] MEDS ORDERED: LORAZEPAM INJ 2 MG/ML VIAL IV PRN (21:30)
--- NOTE | 2022-08-07 21:40 | NUR ---
PROGRAMMING MANAGER PT NOTED ASYSTOLE ON MONITOR; NO SPO2 READING; NO BP READING. PT WITH PUPILS FIXED AND DILATED. NO PULSES PALPABLE. UNABLE TO MEASURE MANUAL BLOOD PRESSURE. NO RESPIRATIONS NOTED. FAMILY AT BEDSIDE
--- NOTE | 2022-08-07 21:43 | NUR ---
GLUING MACHINE OPERATOR BODY RELEASED BY [facility] [employer] [facility] RR [phone] S/W BENNY
--- NOTE | 2022-08-07 22:03 | NUR ---
WEBSPHERE PROCESS SERVER DEVELOPER DAUGHTER TERRA WINKLER [phone] WILL CALL ONCE SHE HAS OBTAINED MORTUARY INFORMATION
--- NOTE | 2022-08-07 22:50 | NUR ---
INSPECTOR MULTIFOCAL LENS POST MORTEM CARE RENDERED. BODY PICKED UP BY SECURITY.
[2022-08-08] MEDS ORDERED: VANCOMYCIN 1 GM in IV D5W 250ml IV SCH (18:00)
== END 2022-08-07 21:40 | DRG 720 ==
LOC: ER 12:47 → MED 20:48 → ICU 08-04 01:59
PROVIDERS: ADMIT Nurse Practitioner Acute Care; ATTEND Student in an Organized Health Care Education/Training Program
PROC: 05HB33Z Insertion of Infusion Device into Right Basilic Vein, Percutaneous Approach (ICD-10-PCS; 2022-08-04)
PROC: 02HV33Z Insertion of Infusion Device into Superior Vena Cava, Percutaneous Approach (ICD-10-PCS; 2022-08-04)
PROC: B548ZZA Ultrasonography of Superior Vena Cava, Guidance (ICD-10-PCS; 2022-08-04)
PROC: 5A1945Z Respiratory Ventilation, 24-96 Consecutive Hours (ICD-10-PCS; principal; 2022-08-05)
PROC: 0BH17EZ Insertion of Endotracheal Airway into Trachea, Via Natural or Artificial Opening (ICD-10-PCS; 2022-08-05)
PROC: 30233N1 Transfusion of Nonautologous Red Blood Cells into Peripheral Vein, Percutaneous Approach (ICD-10-PCS; 2022-08-05)
PROC: 0DJ08ZZ Inspection of Upper Intestinal Tract, Via Natural or Artificial Opening Endoscopic (ICD-10-PCS; 2022-08-06)
DX: A41.51 Sepsis due to Escherichia coli [E. coli] (principal); N17.0 Acute kidney failure with tubular necrosis; J96.01 Acute respiratory failure with hypoxia; R65.21 Severe sepsis with septic shock; E43 Unspecified severe protein-calorie malnutrition; D61.818 Other pancytopenia; G93.41 Metabolic encephalopathy; K26.4 Chronic or unspecified duodenal ulcer with hemorrhage; E87.0 Hyperosmolality and hypernatremia; N39.0 Urinary tract infection, site not specified; E83.51 Hypocalcemia; Z66 Do not resuscitate; Z51.5 Encounter for palliative care; K44.9 Diaphragmatic hernia without obstruction or gangrene; Z20.822 Contact with and (suspected) exposure to COVID-19; K21.9 Gastro-esophageal reflux disease without esophagitis; Z79.01 Long term (current) use of anticoagulants; Z79.899 Other long term (current) drug therapy; R62.7 Adult failure to thrive; B96.89 Other specified bacterial agents as the cause of diseases classified elsewhere; R74.01 Elevation of levels of liver transaminase levels; D70.9 Neutropenia, unspecified; F20.9 Schizophrenia, unspecified; E88.09 Other disorders of plasma-protein metabolism, not elsewhere classified; E87.20 Acidosis, unspecified; E86.1 Hypovolemia; F31.9 Bipolar disorder, unspecified; F03.90 Unspecified dementia, unspecified severity, without behavioral disturbance, psychotic disturbance, mood disturbance, and anxiety; K83.1 Obstruction of bile duct; F17.200 Nicotine dependence, unspecified, uncomplicated; I10 Essential (primary) hypertension; E87.6 Hypokalemia; E53.8 Deficiency of other specified B group vitamins; B19.20 Unspecified viral hepatitis C without hepatic coma; I48.0 Paroxysmal atrial fibrillation; I47.1 Supraventricular tachycardia; Z91.199 Patient's noncompliance with other medical treatment and regimen due to unspecified reason; B96.1 Klebsiella pneumoniae [K. pneumoniae] as the cause of diseases classified elsewhere
CPT/HCPCS: 31720; 36415; 36600; 71045-TC; 76700-TC; 76770-TC; 80048-TC; 80053-TC; 80076-TC; 80202-TC; 81001; 82607-TC; 82728-TC; 82784; 82803-TC; 82962-TC; 83540-TC; 83605-TC; 83690-TC; 83735-TC; 84100-TC; 84155; 84165; 84439-TC; 84443-TC; 84478-TC; 85025-TC; 85385-TC; 85396; 85610-TC; 85730-TC; 86140-TC; 86225; 86235; 86334; 86431-TC; 86706; 86803; 86850-TC; 87040-TC; 87070-TC; 87081-TC; 87086-TC; 87186-TC; 87340; 87522; 87806; 93307-TC; 94002-TC; 94003-TC; 94760-TC; 94799-TC; A6253; A6403; C9113; C9803; G0378; J0153; J0282; J0696; J1630; J2060; J2185; J2270; J2370; J2543; J3370; J3430; J3475; J3480; J3490; J7030; J7040; J7042; J7050; J7060; J7070; J9181; P9016